=== PATIENT | male | born 1950 | race Caucasian/White ===

== ENCOUNTER 2017-12-14 11:23 | Inpatient (IN) | payer OTHER ==
[2017-12-14 13:28] LABS: Absolute Monocytes 0.9 K/uL (0.1-1.3); Basophils % 0.1 % (0-1.3); Eosinophils % 0.6 % (0-4.4); Hematocrit 28.9 % (39.6-49.0); Lymphocytes % 5.1 % (15.3-44.8); MCV 95.8 fL (80-100); MPV 8.7 fL (7.6-11.3); Monocytes % 4.4 % (3.3-12.3); RBC Red Blood Cell Count 3.01 M/uL (4.33-5.43)
[2017-12-14 13:36] LABS: Protime INR 2.36
[2017-12-14] MEDS ORDERED: ONDANSETRON 4 MG/2 ML VIAL ONE (13:37)
[2017-12-14] MEDS ORDERED: MORPHINE 4 MG/ML SYR ONE (13:37)
[2017-12-14 13:49] LABS: Potassium 3.4 mEq/L (3.6-5.0)
[2017-12-14 13:55] LABS: Albumin 3.3 g/dL (3.2-5.5); Bilirubin Direct 0.3 mg/dL (0-0.2); Bilirubin Total 0.9 mg/dL (0.3-1.2); Magnesium 2.5 mg/dL (1.8-2.5); Protein, Total 7.4 g/dL (6.0-8.3)
[2017-12-14 14:08] LABS: Platelet Estimate ADEQ; Urine White Blood Cell Casts OK
[2017-12-14 14:09] LABS: Anisocytosis 2+; Blood Morphology Comment NOTED (NOT SEEN)
--- NOTE | 2017-12-14 14:18 | RAD REPORT ---
EXAM DESCRIPTION: RAD - Foot Left 3 View - 12/14/2017 1:35 pm CLINICAL HISTORY: Soft tissue infection, foot wound COMPARISON: None. FINDINGS: No fracture is present. There is no dislocation or periosteal reaction. No erosive or dest ructive bone process seen. There is no radiographic evidence for osteomyelitis. Bone infection can be present prior to radiographic bone destruction. Air is present in the soft tissues along the plantar and medial aspect of the first proximal phalanx. In the setting of a soft tissue wound, this is most likely air associated with bacterial infection. IMPRESSION: Air is present in the soft tissues of the first toe believed to be related to bacterial infection. No bone destruction to indicate osteomyelitis. Osteomyelitis can exist prior to radiographic bone spenser truction.
--- NOTE | 2017-12-14 14:19 | RAD REPORT ---
EXAM DESCRIPTION: RAD - Chest Single View - 12/14/2017 1:35 pm CLINICAL HISTORY: Shortness of breath COMPARISON: May 2017 TECHNIQUE: AP portable chest image was obtained 1318 hours . FINDINGS: No focal mass or consolidation. Lung markings are prominent but not clearly different. Car diac silhouette is enlarged, similar to fractionally increased over the prior study. No vascular engo rgement. No measurable pleural effusion and no pneumothorax. No gross bony abnormality seen. No acute aortic findings suspected. IMPRESSION: No focal lung parenchymal process seen. Cardiomegaly without additional findings of acute failure or volume overload.
[2017-12-14] MEDS ORDERED: PIPER/TAZO/NS 3.375gm 3.375 GM/100 ML BAG ONE ×2 (15:09→22:00)
--- NOTE | 2017-12-14 15:15 | RAD REPORT ---
EXAM DESCRIPTION: VAS - Extremity Venous Uni Ltd - 12/14/2017 2:50 pm CLINICAL HISTORY: Left lower leg pain COMPARISON: None. TECHNIQUE: Real-time sonographic evaluation of the right lower extremity deep venous systems was per formed. FINDINGS: Normal compressibility, flow augmentation, phasic flow and spontaneous flow are identified in the right lower extremity deep venous system. No intraluminal filling defects seen. IMPRESSION: No DVT in the right lower extremity.
--- NOTE | 2017-12-14 15:18 | RAD REPORT ---
EXAM DESCRIPTION: VAS - Lower Extremity Artery Uni Ltd - 12/14/2017 2:49 pm CLINICAL HISTORY: Left lower extremity pain COMPARISON: None. TECHNIQUE: Doppler evaluation of the arterial tree performed. Waveforms and velocity values were obt ained along with visual inspection. FINDINGS: Extensive calcified and noncalcified plaquing changes are present along the length of the left lower extremity. No occlusion or focal high-grade stenosis identifiable. Irregular biphasic wave forms are seen in the common femoral and superficial femoral arteries. From popliteal artery to dorsa lis pedis artery there is a monophasic waveform pattern seen. Common femoral artery peak systolic velocity was 113 cm per second.Femoral artery velocity values ran ge from 51 cm/second-136 cm/second. Velocities were dampened distally. Popliteal artery was 29 cm/sec ond with posterior tibial 39 cm/second and dorsalis pedis artery 14 cm/second. No suspicious soft tis ute mass identified. IMPRESSION: Extensive lower extremity peripheral arterial disease is present. There is plaquing thro ughout the leg. No focal high-grade stenosis or occlusion. The abnormal waveform patterns proximally indicate significant iliac artery disease as well.
[2017-12-14] MEDS ORDERED: ACETAMINOPHEN 500 MG TAB PO PRN (15:29)
--- NOTE | 2017-12-14 15:43 | P.HP ---
Certification for Inpatient Patient admitted to: Inpatient With expected LOS: >2 Midnights Patient will require the following post-hospital care: None Practitioner: I am a practitioner with admitting privileges, knowledge of patient current condition, hospital course, and medical plan of care. Services: Services provided to patient in accordance with Admission requirements found in Title 42 Section 412.3 of the Code of Federal Regulations Patient History Date of Service: 12/14/17 Primary Care Provider: Dr Peters Reason for admission: Left Great Toe infection History of Present Illness: This is a 67-year-old male with significant past medical history of congestive heart failure, atrial fibrillation, diabetes, high blood pressure who presented to the ED with left great toe swelling and pain. Patient stated that for about 3 weeks he has been having this infection in his left great toe which has not been improving and has been progressively getting worse to the point today when he started having a throbbing pain and was just not feeling better. Patient stated that he also had fever and chills at home. Has been taking Tylenol to help with it and has not gotten better at all thus he decided to come to the ER. In the ER patient was found to have increased swelling and redness and necrotic tissue of the left great toe and x-ray of the extremity showed fair in the subcutaneous area and does medicine team was consulted to admit the patient for further management. Allergies No Known Drug Allergies Allergy (Verified 02/14/15 23:15) Unknown Home Medications: Atorvastatin Calcium [Lipitor*] 10 mg PO DAILY 04/01/16 Furosemide [Lasix*] 40 mg PO BID 04/01/16 Metformin ER [Glucophage ER*] 500 mg PO BID 04/01/16 Ramipril [Altace] 10 mg PO DAILY 04/01/16 Rivaroxaban [Xarelto*] 20 mg PO DAILY AT SUPPER 04/01/16 Amiodarone HCl [Cordarone*] 200 mg PO BID #180 tab 06/18/16 - Past Medical/Surgical History Diabetic: Yes -: atrial fibrillation -: OK -: CHF -: HTN -: hyperlipidemia -: DM- 2 -: tobaccoo abuse -: cardiac stent -: defibrilator -: bilateral Knee x2 -: arm surgery - Family History Mother -: Hypertension, Cancer Father -: Heart disease, Hypertension - Social History Alcohol use: Yes CD- Drugs: No Caffeine use: No Review of Systems General: As per HPI Physical Examination - Physical Exam General: Alert, In no apparent distress, Oriented x3 HEENT: Atraumatic Neck: Supple Respiratory: Clear to auscultation bilaterally, Normal air movement Cardiovascular: Regular rate/rhythm, Normal S1 S2 Gastrointestinal: Normal bowel sounds, No tenderness Musculoskeletal: Erythema, Tenderness, Warmth, Other (Left Toe necrotic with Purulent Disharge ) Integumentary: Skin breakdown, Skin lesion Neurological: Normal speech, Normal tone Lymphatics: No axilla or inguinal lymphadenopathy - Studies Laboratory Data (last 24 hrs) 12/14/17 13:10: B-Natriuretic Peptide 1788 H 12/14/17 13:10: PT 28.1 H, INR 2.36, APTT 33.2 12/14/17 13:10: WBC 20.0 H, Hgb 9.3 L, Hct 28.9 L, Plt Count 302 12/14/17 13:10: Sodium 134 L, Potassium 3.4 L, BUN 52 H, Creatinine 2.18 H, Glucose 126 H, Magnesium 2.5, Total Bilirubin 0.9, AST 20, ALT 13, Alkaline Phosphatase 85 Assessment and Plan - Problems (Diagnosis) (1) Foot infection Current Visit: Yes Status: Acute Plan: Left Great Toe infection. Xray with Air in the subcutaneous region -IV Vanc and zosyn -Wound and blood culture -Gen surgery Consulted -ID consulted -Wound care (2) Afib Onset Date: 01/31/16 Current Visit: No Status: Chronic Plan: Will restart Amiodorone and Xarelto Qualifiers: Atrial fibrillation type: chronic (3) CHF (congestive heart failure) Onset Date: 04/02/16 Current Visit: No Status: Chronic Plan: Will restart Lasix at this time. Qualifiers: Heart failure type: combined systolic and diastolic (4) Diabetes Onset Date: 01/31/16 Current Visit: No Status: Chronic Qualifiers: Diabetes mellitus type: type 2 Diabetes mellitus intermediate accountant insulin use: without half-way use Diabetes mellitus complication status: with skin complications Diabetes mellitus complication detail: with foot ulcer Qualified Code(s): E11.621 - Type 2 diabetes mellitus with foot ulcer; L97.509 - Non-pressure chronic ulcer of other part of unspecified foot with unspecified severity; L97.509 - Non-pressure chronic ulcer of other part of unspecified foot with unspecified severity; L97.509 - Non-pressure chronic ulcer of other part of unspecified foot with unspecified severity; L97.509 - Non-pressure chronic ulcer of other part of unspecified foot with unspecified severity (5) Sepsis affecting skin Current Visit: Yes Status: Acute Plan: See # 1 Discharge Plan: Home Plan to discharge in: 72 Hours - Advance Directives Does patient have a Living Will: No Does patient have a Durable POA for Healthcare: No - Code Status/Comfort Care Code Status Assessed: Yes Critical Care: No
--- NOTE | 2017-12-14 15:56 | EKG ---
Test Date: 2017-12-14 Test Time: 13:43:05 Clinical Nutritionist: CEDRIC MEASUREMENT RESULTS: Intervals: Rate: 102 ID: QRSD: [id number] QT: 376 QTc: 490 [place]: P: ID: QRS: [id number] T: 143 INTERPRETIVE STATEMENTS: Atrial fibrillation with rapid ventricular response with premature ventricular or aberrantly conducted complexes Left axis deviation Left bundle branch block Abnormal ECG Compared to ECG 06/15/2016 15:18:35 Ventricular premature complex(es) now present Electronically Signed On 12-14-17 15:55:40 CDT by Canelo Dong
--- NOTE | 2017-12-14 15:58 | EDPHYS ---
Physician Documentation [facility] Name: Sha Tan Age: 67 yrs Sex: Male : 1950 Arrival Date: 12/14/2017 Time: 11:24 Bed 23 Private MD: Rell Peters ED Physician Delfino Addison HPI: 12/14 12:48 This 67 yrs old Male presents to ER via Ambulatory with complaints of Foot cp Pain. 12:48 The patient presents with pain, that is acute, swelling, tenderness. The complaints cp affect the left foot. Onset: The symptoms/episode began/occurred 2 week(s) ago. 12:48 Associated signs and symptoms: Pertinent positives: warmth, Pertinent negatives fever, cp vomiting. Treatment prior to arrival includes: no previous treatment. Historical: - Allergies: 11:44 NKDA; ph - Home Meds: 11:44 metformin 500 mg Oral tr24 [Active]; ph - PMHx: 11:44 Atrial Fib; CHF; Hypertension; Myocardial infarction; ph - Immunization history:: Adult Immunizations unknown. - Social history:: Smoking status: Patient uses tobacco products, smokes one-half pack cigarettes per day. ROS: 12:50 Constitutional: Negative for body aches, chills, fever, poor PO intake. cp 12:50 Eyes: Negative for injury, pain, redness, and discharge. cp 12:50 ENT: Negative for drainage from ear(s), ear pain, sore throat, difficulty swallowing, difficulty handling secretions. 12:50 Neck: Negative for pain with movement, pain at rest, stiffness, tenderness. 12:50 Cardiovascular: Negative for chest pain, edema, palpitations. 12:50 Respiratory: Negative for cough, shortness of breath, wheezing. 12:50 Abdomen/GI: Negative for abdominal pain, nausea, vomiting, and diarrhea, black/tarry stool, rectal bleeding. 12:50 Back: Negative for pain at rest, pain with movement, radiated pain. 12:50 MS/extremity: Positive for erythema, pain, swelling, tenderness, warmth, of the left foot. 12:50 Skin: Positive for cellulitis, ulceration, open wounds left great and second toes. 12:50 All other systems are negative. Exam: 13:03 Constitutional: The patient appears in no acute distress, alert, awake, cp non-diaphoretic, non-toxic, well developed, uncomfortable. 13:03 Head/Face: Normocephalic, atraumatic. cp 13:03 Eyes: Periorbital structures: appear normal, Pupils: equal, round, and reactive to cp light and accomodation, Extraocular movements: intact throughout, Conjunctiva: normal, no exudate, no injection, Lids and lashes: appear normal, bilaterally. 13:03 ENT: External ear(s): are unremarkable, Ear canal(s): are normal, clear, TM's: cp dullness, bilaterally, Nose: is normal, Mouth: Lips: moist, Oral mucosa: moist, Posterior pharynx: is normal, airway is patent, no erythema, no exudate, Voice: is normal. 13:03 Neck: External neck: is normal, ROM/movement: is normal, is supple, without pain, no range of motions limitations, no meningismus, no nuchal rigidity. 13:03 Chest/axilla: Inspection: normal, Palpation: is normal, no crepitus, no tenderness. 13:03 Cardiovascular: Rate: normal, Rhythm: regular, Pulses: not palpable, left dorsalis pedis, Edema: mild left lower leg. 13:03 Respiratory: the patient does not display signs of respiratory distress, Respirations: normal, no use of accessory muscles, no retractions, no splinting, no tachypnea, labored breathing, is not present, Breath sounds: are clear throughout, no decreased breath sounds, no stridor, no wheezing. 13:03 Abdomen/GI: Inspection: abdomen appears normal, Bowel sounds: active, all quadrants, Palpation: abdomen is soft and non-tender, in all quadrants. 13:03 Back: pain, is absent, ROM is normal. 13:03 Skin: cellulitis, that is moderate, on the left foot, noted large open wound distal aspect left great toe and smaller wound distal tip left second toe. 13:50 ECG was reviewed by the Attending Physician. cp Vital Signs: 11:44 BP 148 / 118; Pulse 97; Resp 22; Temp 97.5(TE); Pulse Ox 100% on R/A; Weight 111.13 kg; ph Height 6 ft. 1 in. (185.42 cm); Pain 7/10; 13:53 BP 113 / 47; Pulse 104; Resp 19; Pulse Ox 98% on R/A; kr2 15:36 BP 91 / 60; Pulse 100; Resp 16; Pulse Ox 97% on R/A; kr2 16:50 BP 107 / 54; Pulse 94; Resp 18; Pulse Ox 97% on R/A; kr2 11:44 Body Mass Index 32.32 (111.13 kg, 185.42 cm) ph 15:36 VIVEK Mayberry notified of blood pressure dropping, patient placed in trendelenburg kr2 position MDM: 12:29 Patient medically screened. cp 13:00 Differential diagnosis: osteomyelitis, cellulitis, sepsis. cp 14:58 Physician consultation: Noreen Lomeli MD was called at 14:58, was contacted at 14:58, cp regarding admission, to the medical/surgical unit. patient's condition. 15:30 Data reviewed: vital signs, nurses notes, lab test result(s), EKG, radiologic studies, cp plain films, ultrasound. 15:30 Test interpretation: by ED physician or midlevel provider: plain radiologic studies. cp Counseling: I had a detailed discussion with the patient and/or guardian regarding: the historical points, exam findings, and any diagnostic results supporting the discharge/admit diagnosis, lab results, radiology results, the need for further work-up and treatment in the hospital. 12/14 11:52 Order name: Glucose, Ancillary Testing; Complete Time: 12:30 EDMS 12/14 12:55 Order name: Wound Culture cp 12/14 12:55 Order name: Blood Culture Adult (2) cp 12/14 12:55 Order name: Basic Metabolic Panel cp 12/14 12:55 Order name: CBC with Diff cp 12/14 12:55 Order name: LFT's cp 12/14 12:55 Order name: Magnesium cp 12/14 12:55 Order name: PT-INR cp 12/14 12:55 Order name: Ptt, Activated cp 12/14 12:55 Order name: BNP cp 12/14 13:38 Order name: CBC with Automated Diff; Complete Time: 14:29 EDMS 12/14 14:32 Interpretation: Normal except: WBC 20.0; RBC 3.01; HGB 9.3; HCT 28.9; RDW 18.0; RYLEE% cp 89.8; LYM% 5.1; NEUT A 18.0. 12/14 13:39 Order name: Protime (+INR); Complete Time: 14:29 EDMS 12/14 14:33 Interpretation: Abnormal: PT 28.1. cp 12/14 13:39 Order name: PTT, Activated Partial Thromb; Complete Time: 14:29 EDMS 12/14 13:49 Order name: Basic Metabolic Panel; Complete Time: 14:29 EDMS 12/14 14:57 Interpretation: Normal except: NA 134; K 3.4; CL 91; GLUC 126; BUN 52; CRE 2.18; GFR 30. 12/14 12:55 Order name: XRAY Foot LEFT 3 View cp 12/14 12:55 Order name: US Lower Extremity (Artery Uni Ltd) cp 12/14 12:55 Order name: CXR XRAY 12/14 12:55 Order name: US Extremity Venous Uni Ltd cp 12/14 13:55 Order name: Liver (Hepatic) Function; Complete Time: 14:29 EDMS 12/14 13:55 Order name: Magnesium; Complete Time: 14:29 EDMS 12/14 13:58 Order name: BNP B-Type Natriuretic Peptide; Complete Time: 14:29 EDMS 12/14 14:57 Interpretation: Abnormal: BNP 1788. 12/14 14:10 Order name: Manual Differential; Complete Time: 14:29 EDMS 12/14 14:19 Order name: RAD; Complete Time: 14:29 EDMS 12/14 14:20 Order name: RAD; Complete Time: 14:29 EDMS 12/14 15:16 Order name: V[facility] 12/14 15:26 Interpretation: Report reviewed. 12/14 15:18 Order name: VAS; Complete Time: 15:26 EDMS 12/14 15:27 Interpretation: Report reviewed. 12/14 16:53 Order name: Lactate EDMT 12/14 16:58 Order name: C-Reactive Protein EDMT 12/14 12:55 Order name: EKG; Complete Time: 12:55 cp 12/14 12:55 Order name: Cardiac monitoring; Complete Time: 13:16 12/14 12:55 Order name: EKG - Nurse/Tech; Complete Time: 14:00 12/14 12:55 Order name: IV Saline Lock; Complete Time: 13:16 12/14 12:55 Order name: Labs collected and sent; Complete Time: 13:16 12/14 12:55 Order name: O2 Per Protocol; Complete Time: 13:16 cp 12/14 12:55 Order name: O2 Sat Monitoring; Complete Time: 13:17 cp EC:50 Rate is 102 beats/min. Rhythm is irregularly irregular. QRS interval is prolonged at cp 162 msec. QT interval is normal. No ST changes noted. Interpreted by me. Reviewed by me. Administered Medications: 13:35 Drug: morphine 4 mg Route: IVP; Site: left antecubital; kr2 14:00 Follow up: Response: No adverse reaction; Pain is decreased kr2 13:35 Drug: Zofran 4 mg Route: IVP; Site: left antecubital; kr2 14:01 Follow up: Response: No adverse reaction kr2 14:57 Drug: Zosyn 3.375 grams Route: IVPB; Infused Over: 60 mins; Site: left antecubital; kr2 15:53 Follow up: Response: No adverse reaction; IV Status: Completed infusion kr2 15:53 Drug: vancoMYCIN 1 grams Route: IVPB; Infused Over: 2 hrs; Site: left antecubital; kr2 17:05 Follow up: Response: No adverse reaction; IV Status: Infusion continued upon admission kr2 15:59 Drug: NS 0.9% 250 ml Route: IV; Rate: bolus; Site: left antecubital; kr2 16:34 Follow up: IV Status: Completed infusion ss Point of Care Testing: Blood Glucose: 11:45 Blood Glucose: 184 mg/dL; ph Ranges: Critical Glucose Levels:Adult <50 mg/dl or >400 mg/dl <40 mg/dl or >180 mg/dl Disposition: 12/14/17 15:57 Hospitalization ordered by Noreen Lomeli for Inpatient Admission. Preliminary diagnosis are Cellulitis of left lower limb - Left Foot, Open wound of foot - Left Great and Second Toes. - Bed requested for Telemetry/MedSurg (Inpatient). - Status is Inpatient Admission. kr2 - Condition is Stable. - Problem is new. - Symptoms are unchanged. UTI on Admission? No Addendum: 12/18/2017 07:21 Co-signature as Attending Physician, Delfino Addison MD. g s Signatures: Dispatcher [employer] Cheyenne Maxwell Patricia, RN RN Taiwo Jimenez PA PA cp Starr, Gregory, MD MD gs Reaves, Karey, RN RN kr2 Josefa Sweeney RN ss
--- NOTE | 2017-12-14 15:58 | ER ---
Nurse's Notes [facility] Name: Sha Tan Age: 67 yrs Sex: Male : 1950 Arrival Date: 12/14/2017 Time: 11:24 Bed 23 Private MD: Rell Peters Diagnosis: Cellulitis of left lower limb-Left Foot;Open wound of foot-Left Great and Second Toes Presentation: 12/14 11:39 Presenting complaint: Patient states: My circulation in my foot is bad and my toenails ph started falling off a few days ago. Reports pain in L foot, large wound w/ black eschar noted to L great toe, smaller wound to second toe. Denies N/V/D or fever, reports slight headache. Transition of care: patient was not received from another setting of care. Onset of symptoms was December 14, 2017. Care prior to arrival: None. 11:39 Method Of Arrival: Ambulatory ph 11:39 Acuity: MARCELL 3 ph Historical: - Allergies: 11:44 NKDA; ph - Home Meds: 11:44 metformin 500 mg Oral tr24 [Active]; ph - PMHx: 11:44 Atrial Fib; CHF; Hypertension; Myocardial infarction; ph - Immunization history:: Adult Immunizations unknown. - Social history:: Smoking status: Patient uses tobacco products, smokes one-half pack cigarettes per day. Screenin:51 Abuse screen: Denies threats or abuse. Denies injuries from another. Nutritional kr2 screening: No deficits noted. Tuberculosis screening: No symptoms or risk factors identified. Fall Risk None identified. Assessment: 13:10 General: Appears in no apparent distress. comfortable, well groomed, well nourished, kr2 Behavior is calm, cooperative, appropriate for age. Pain: Complains of pain in plantar aspect of left first toe, plantar aspect of left second toe and plantar aspect of left third toe Pain radiates to left foot Pain currently is 8 out of 10 on a pain scale. Quality of pain is described as aching, throbbing, Is continuous, Alleviated by medications, rest, Aggravated by increased activity, weight bearing. 13:10 Neuro: Level of Consciousness is awake, alert, obeys commands, Oriented to person, kr2 place, time, situation, Appropriate for age. Cardiovascular: Capillary refill < 3 seconds in bilateral fingers Patient's skin is warm and dry. Respiratory: Airway is patent Respiratory effort is even, unlabored, Respiratory pattern is regular, symmetrical. GI: Abdomen is flat, non-distended. : No signs and/or symptoms were reported regarding the genitourinary system. EENT: Oral mucosa is dry. Derm: Wound noted plantar aspect of left first toe and plantar aspect of left second toe, plantar aspect of right great toe Wound is not draining, eschar noted to right toe, odor present. Musculoskeletal: Circulation, motion, and sensation intact. 15:36 Reassessment: Patient appears in no apparent distress at this time. Patient and/or kr2 family updated on plan of care and expected duration. Pain level reassessed. Patient is alert, oriented x 3, equal unlabored respirations, skin warm/dry/pink. 16:14 Reassessment: Patient appears in no apparent distress at this time. Patient and/or kr2 family updated on plan of care and expected duration. Pain level reassessed. Patient is alert, oriented x 3, equal unlabored respirations, skin warm/dry/pink. Vital Signs: 11:44 BP 148 / 118; Pulse 97; Resp 22; Temp 97.5(TE); Pulse Ox 100% on R/A; Weight 111.13 kg; ph Height 6 ft. 1 in. (185.42 cm); Pain 7/10; 13:53 BP 113 / 47; Pulse 104; Resp 19; Pulse Ox 98% on R/A; kr2 15:36 BP 91 / 60; Pulse 100; Resp 16; Pulse Ox 97% on R/A; kr2 16:50 BP 107 / 54; Pulse 94; Resp 18; Pulse Ox 97% on R/A; kr2 11:44 Body Mass Index 32.32 (111.13 kg, 185.42 cm) ph 15:36 VIVEK Mayberry notified of blood pressure dropping, patient placed in trendelenburg kr2 position ED Course: 11:24 Patient arrived in ED. as 11:24 Rell Peters DO is Private Physician. as 11:42 Triage completed. ph 11:45 Arm band placed on Patient placed in waiting room, Patient notified of wait time. ph 12:29 [facility]wo Esparza [facility]. cp 12:29 Delfino Addison MD is Attending Physician. cp 13:02 Onelia Sylvester, RN is Primary Nurse. kr2 13:10 Inserted saline lock: 22 gauge in right antecubital area, using aseptic technique. kr2 Blood collected. 13:10 Initial lab(s) drawn, First set of blood cultures drawn by me, Wound culture swab sent kr2 to lab. 13:30 IV discontinued, intact, bleeding controlled, Pressure dressing applied, would not kr2 flush for medication administration. 13:33 X-ray completed. Portable x-ray completed in exam room. Patient tolerated procedure kp1 well. 13:35 Inserted saline lock: 20 gauge in left antecubital area, using aseptic technique. Blood kr2 collected. 13:35 Second set of blood cultures drawn by me, EKG done, reviewed by Taiwo DOYLE. kr2 13:50 Ultrasound completed. Patient tolerated well. Notified [employer]IC/VIVEK chanel . sg3 13:51 Patient has correct armband on for positive identification. Call light in reach. Side kr2 rails up X2. surveillance system monitor on. Pulse ox on. NIBP on. Door closed. Lights dimmed. Head of bed elevated. 15:57 Noreen Lomeli MD is Hospitalizing Provider. cp 16:33 Inserted saline lock: 22 gauge in right antecubital area, using aseptic technique. ss Blood collected. 17:05 No provider procedures requiring assistance completed. Patient admitted, IV remains in kr2 place. Administered Medications: 13:35 Drug: morphine 4 mg Route: IVP; Site: left antecubital; kr2 14:00 Follow up: Response: No adverse reaction; Pain is decreased kr2 13:35 Drug: Zofran 4 mg Route: IVP; Site: left antecubital; kr2 14:01 Follow up: Response: No adverse reaction kr2 14:57 Drug: Zosyn 3.375 grams Route: IVPB; Infused Over: 60 mins; Site: left antecubital; kr2 15:53 Follow up: Response: No adverse reaction; IV Status: Completed infusion kr2 15:53 Drug: vancoMYCIN 1 grams Route: IVPB; Infused Over: 2 hrs; Site: left antecubital; kr2 17:05 Follow up: Response: No adverse reaction; IV Status: Infusion continued upon admission kr2 15:59 Drug: NS 0.9% 250 ml Route: IV; Rate: bolus; Site: left antecubital; kr2 16:34 Follow up: IV Status: Completed infusion Point of Care Testing: Blood Glucose: 11:45 Blood Glucose: 184 mg/dL; ph Ranges: Outcome: 15:57 Decision to Hospitalize by Provider. cp 17:06 Admitted to Tele accompanied by rohan, via stretcher, room 225, with chart, Report kr2 called to Юлия 17:06 Condition: stable 17:06 Instructed on the need for admit, Demonstrated understanding of instructions. 17:07 Patient left the ED. kr2 Signatures: Jacy Ramos Shelby, PHILLIP RN ss Stephanie Platt RN RN ph Taiwo Esparza, VIVEK PA Brook Koenig kp1 Onelia Sylvester RN RN kr2 Leyla Rucker sg3 Corrections: (The following items were deleted from the chart) 14:29 13:10 Derm: Wound noted plantar aspect of left first toe and plantar aspect of left kr2 second toe Wound is eschar and odor noted kr2 16:14 15:36 BP 91 / 60; Pulse 100bpm; Resp 16bpm; Pulse Ox 97% RA; kr2 kr2
[2017-12-14] MEDS ORDERED: VANCOMYCIN 1.25 GM in NA CHLORIDE 0.9% 250 ML IVPB SCH (16:00)
[2017-12-14] MEDS ORDERED: VANCOMYCIN/NS 1 gm 1 GM/250 ML BAG ONE (16:03)
[2017-12-14] MEDS ORDERED: NA CHLORIDE 0.9% 250 ML ONE (16:14)
[2017-12-14] MEDS: INSULIN -REGULAR HUMAN 50 UNIT/0.5 ML ML SQ SCH ×2 (16:30→21:07)
[2017-12-14] MEDS ORDERED: VANCOMYCIN/NS 1 gm 1 GM/250 ML BAG IV ONE ×2 (17:00→22:00)
[2017-12-14 18:40] VITALS: BMI 31.2
[2017-12-14] MEDS: PIPER/TAZO/NS 3.375gm 3.375 GM/100 ML BAG IVPB SCH (21:00)
[2017-12-14] MEDS: TRAMADOL HCL 50 MG TAB PO PRN (21:57)
[2017-12-15] LABS: Urine Appearance CLEAR; Urine Bilirubin NEGATIVE (NEG); Urine Blood NEGATIVE (NEG); Urine Color YELLOW; Urine Glucose NEGATIVE (NEG); Urine Protein NEGATIVE (NEG); Urine Specific Gravity 1.015 (1.005-1.030); Urine Urobilinogen 0.2 mg/dL (0.2-1.0); Urine pH 5.5 (5.0-7.0)
[2017-12-15 00:11] LABS: Urine Microscopic Reflex NO UMIC
[2017-12-15 06:06] LABS: Absolute Lymphocytes (CBC) 1.2 K/uL (0.7-4.9); Absolute Monocytes 0.8 K/uL (0.1-1.3); Absolute Neutrophil 15.6 K/uL (1.8-8.0); Basophils % 0.5 % (0-1.3); Eosinophils % 1.3 % (0-4.4); Lymphocytes % 6.5 % (15.3-44.8); MCV 96.7 fL (80-100); MPV 8.7 fL (7.6-11.3); Monocytes % 4.4 % (3.3-12.3); RBC Red Blood Cell Count 2.59 M/uL (4.33-5.43)
[2017-12-15 06:26] LABS: Protime INR 3.32
[2017-12-15 06:50] LABS: Albumin 2.4 g/dL (3.2-5.5); Bilirubin Total 0.8 mg/dL (0.3-1.2); Magnesium 2.5 mg/dL (1.8-2.5); Phosphorus 4.1 mg/dL (2.5-4.3); Potassium 3.4 mEq/L (3.6-5.0); Protein, Total 5.7 g/dL (6.0-8.3)
[2017-12-15] MEDS: INSULIN -REGULAR HUMAN 50 UNIT/0.5 ML ML SQ SCH ×4 (07:30→20:49)
[2017-12-15] MEDS ORDERED: POTASSIUM CL SA 10 MEQ TAB PO ONE (09:00)
[2017-12-15] MEDS: CARVEDILOL 3.125 MG TAB PO SCH ×2 (09:00→20:46)
[2017-12-15] MEDS: PIPER/TAZO/NS 3.375gm 3.375 GM/100 ML BAG IVPB SCH ×2 (09:22→20:46)
[2017-12-15] MEDS ORDERED: NA CHLORIDE 0.9% 500 ML IV ONE (09:52)
[2017-12-15] MEDS: TRAMADOL HCL 50 MG TAB PO PRN (12:38)
--- NOTE | 2017-12-15 13:36 | P.CNS ---
Date of Consult: 12/15/17 Reason for Consult: JOHN Requesting Physician: Aly Mckinnon Primary Care Provider: Dr Peters Chief Complaint: Left Great Toe infection History of Present Illness: 67 yo WM DM, HTN presented to the ER with three weeks of moderate, progressive Left great toe pain/ ulcer with associated fever/ chills. Has been taking Aleve three times per day for the past five days. No difficulty with urination. Reports that his BP doesn't run this low. This is a 67-year-old male with significant past medical history of congestive heart failure, atrial fibrillation, diabetes, high blood pressure who presented to the ED with left great toe swelling and pain. Patient stated that for about 3 weeks he has been having this infection in his left great toe which has not been improving and has been progressively getting worse to the point today when he started having a throbbing pain and was just not feeling better. Patient stated that he also had fever and chills at home. Has been taking Tylenol to help with it and has not gotten better at all thus he decided to come to the ER. In the ER patient was found to have increased swelling and redness and necrotic tissue of the left great toe and x-ray of the extremity showed fair in the subcutaneous area and does medicine team was consulted to admit the patient for further management. 12:48 This 67 yrs old Male presents to ER via Ambulatory with complaints of Foot cp Pain. 12:48 The patient presents with pain, that is acute, swelling, tenderness. The complaints cp affect the left foot. Onset: The symptoms/episode began/occurred 2 week(s ) ago. Allergies No Known Drug Allergies Allergy (Verified 02/14/15 23:15) Unknown Home medications list reviewed: Yes Home Medications: Atorvastatin Calcium [Lipitor*] 10 mg PO DAILY 04/01/16 Furosemide [Lasix*] 80 mg PO DAILY 04/01/16 Metformin ER [Glucophage ER*] 500 mg PO BID 04/01/16 Ramipril [Altace] 10 mg PO DAILY 04/01/16 Rivaroxaban [Xarelto*] 20 mg PO DAILY AT SUPPER 04/01/16 Carvedilol [Coreg] 3.125 mg PO BID 12/14/17 - Past Medical/Surgical History Diabetic: Yes -: atrial fibrillation -: MT -: CHF -: HTN -: hyperlipidemia -: DM- 2 -: tobaccoo abuse -: cardiac stent -: defibrilator -: bilateral Knee x2 -: arm surgery - Family History Mother Medical History: Hypertension, Cancer Father Medical History: Heart disease, Hypertension - Social History Smoking Status: Current every day smoker Alcohol use: No CD- Drugs: No Caffeine use: Yes Place of Residence: Home Review of Systems 10-point ROS is otherwise unremarkable General: Weakness, Malaise Cardiovascular: Edema Integumentary: Lesions Neurological: Weakness Physical Examination Temp Pulse Resp BP Pulse Ox 95.8 F L 104 H 16 81/50 L 99 12/15/17 08:00 12/15/17 08:00 12/15/17 08:00 12/15/17 08:00 12/15/17 08:00 General: Oriented x3, Cooperative HEENT: Atraumatic Neck: Supple Respiratory: Clear to auscultation bilaterally, Normal air movement Cardiovascular: Regular rate/rhythm, No rubs, Edema Gastrointestinal: Soft and benign, Non-distended Musculoskeletal: No clubbing, No contractures Integumentary: No rashes, Skin breakdown, Diabetic ulcer Neurological: Normal speech Laboratory Data (last 24 hrs) 12/14/17 13:10: B-Natriuretic Peptide 1788 H 12/14/17 13:10: PT 28.1 H, INR 2.36, APTT 33.2 12/14/17 13:10: WBC 20.0 H, Hgb 9.3 L, Hct 28.9 L, Plt Count 302 12/14/17 13:10: Sodium 134 L, Potassium 3.4 L, BUN 52 H, Creatinine 2.18 H, Glucose 126 H, Magnesium 2.5, Total Bilirubin 0.9, AST 20, ALT 13, Alkaline Phosphatase 85 Imagings Data: EXAM DESCRIPTION: RAD - Chest Single View - 12/14/2017 1:35 pm CLINICAL HISTORY: Shortness of breath COMPARISON: May 2017 TECHNIQUE: AP portable chest image was obtained 1318 hours . FINDINGS: No focal mass or consolidation. Lung markings are prominent but not clearly different. Cardiac silhouette is enlarged, similar to fractionally increased over the prior study. No vascular engorgement. No measurable pleural effusion and no pneumothorax. No gross bony abnormality seen. No acute aortic findings suspected. IMPRESSION: No focal lung parenchymal process seen. Cardiomegaly without additional findings of acute failure or volume overload. Conclusions/Impression: A/ JOHN likely ATN in the setting of NSAIDs. CKD III. HTN with CKD. DM II with CKD. Diastolic CHF, chronic. Anemia in chronic illness. Hyponatemia. Hypokalemia. Hypocalcemia. Moderate malnutrition. PAD with LE ulcers. P/ Continue current POC and Medications. Start gentle IVF. Agree with potassium replacement. Agree with abx/ Recommend renal dosing. Monitor vancomycin levels. Check anemia labs. Start Vitamin D. Encourage nutrition. No NSAIDs. AM labs. Daily weight. Thank you kindly for the consultation.
--- NOTE | 2017-12-15 13:55 | CON ---
Date of Consultation: 12/15/2017 Reason For Consultation: Left lower extremity infection. History Of Present Illness: The patient is a 67-year-old gentleman with multiple medical problems, w ho states that about 3 weeks ago he had an infection in his left great toe. It was progressively get ting worse. He had increasing pain, did not feel well, and came to the emergency room. He had fever and chills at home. No purulent discharge, and he states that after being admitted overnight, he fe els better. He is anticoagulated for AFib and cardiac stents. Review of Systems: No sore throat. No fever or chills. Currently, no chest pain. Review of systems is otherwise unrem arkable. Past Medical History: Diabetes, atrial fibrillation, ID, CHF, hypertension, and hyperlipidemia. Past Surgical History: Defibrillator, cardiac stents, bilateral knee surgery, and arm surgery. Allergies: NONE. Social History: The patient does smoke and drinks occasionally. Family History: Significant for hypertension, heart disease, unknown type of cancer in the mother. Physical Examination: Vital Signs: Stable. Blood pressure is between 80 and 100 systolic, but is unchanged. Heart rate is between 88 and 104. General: He is awake, alert, orient x3. Head and Neck: Cranial nerves 2 through 12 grossly within normal limits. No neck masses. No JVD. Throat clear. Neck is supple. Chest: Clear. Heart: S1, S2. Abdomen: Soft. Extremities: I am unable to palpate the dorsalis pedis and posterior tibial pulses on the left foot. There is approximately a 2 cm area of dry gangrene on the medial aspect of the left great toe. The re is some erythema and edema. There is no fluctuance. There is mild induration. There is no purul ent discharge. There is approximately 1 cm area of dry gangrene present on the second toe on the sorin ntar medial aspect. Laboratory Data: White count on admission was 20,000 and 17.9 right now, H and H are 8 and 25. Ther e is a left shift. His INR is 3.32, PT is 39.7. BUN is 62, creatinine is 2.73. His lactic acid is 10.1. He had a foot x-ray, which shows air present in the soft tissue in the first toe, believed to be related to bacterial infection. No bony destruction to indicate osteo; however, it can exist on t he plain films, difficult to toe. Venous study of the left lower extremity, which does not show any D VT. He had a Doppler study done, which shows extensive lower extremity peripheral arterial disease i s present, plaquing throughout the leg. No focal high-grade stenosis or occlusion. The abnormal wav eform proximally indicated significant iliac artery disease as well. Assessment: A 67-year-old gentleman with multiple medical problems with left first and second toe dr lorena gangrene and severe peripheral vascular disease. Recommendations: At this time, the patient does not have any clinical indication for an urgent surge ry. He does need further evaluation for an osteomyelitis and because he has a defibrillator in place , may be a bone scan or a CT scan would further help to make the diagnosis. Because of his renal ins ufficiency, it would be difficult to do an angiogram on this patient. He is high risk for any surger y for toe amputation because I do not believe he has a circulation for it to heal. The only surgery that may help him in the BKA or an AKA and that is consideration down the road if conservative treatm ent is failed, and that would have to be based upon transcutaneous oxygen measurement prior to surger y. Plan of care was discussed in detail with Dr. Mckinnon. JAQUAN/GINNA Voice ID: [id number] Report ID: [id number]
[2017-12-15 14:52] LABS: Urine Appearance CLEAR; Urine Bilirubin NEGATIVE (NEG); Urine Blood NEGATIVE (NEG); Urine Color YELLOW; Urine Glucose NEGATIVE (NEG); Urine Protein NEGATIVE (NEG); Urine Urobilinogen 0.2 mg/dL (0.2-1.0)
[2017-12-15 15:28] LABS: Urine Bacteria <20 /HPF (NONE SEEN); Urine Culture Reflex Order NOT NEEDED; Urine RBC <5 /HPF (NONE SEEN)
[2017-12-15] MEDS: RIVAROXABAN 20 MG TABLET PO SCH (16:43)
--- NOTE | 2017-12-15 17:17 | CON ---
Mr. Tan is 67. 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 He also has underlying renal insufficiency, creatinine is 2.73. Per ipheral vascular disease, COPD, ongoing smoking, came to the hospital because sores on his toes are n ot healing. They have been that way for several months but now it is causing more pain and the left great toe is the main one. It is on the aspect of the toe which would look medially or towards the o ther toe. There is an ulcer about 2-1/2 to 3 cm in diameter. It is filled with dry gangrenous mater ial. There was no purulence. He has had an arterial Doppler study indicating that the peripheral ar teries in the legs are probably completely blocked. He is a regular cigarette smoker. Outpatient Medications: Metformin, ramipril, furosemide, atorvastatin, rivaroxaban, carvedilol. Allergies: HE REPORTS NO ALLERGIES. Physical Examination: General: He is 6 feet 1 inch, 237 pounds. Lungs: Reveal no significant abnormality. Heart: Irregularly irregular. There is an S3 gallop. Holosystolic murmur. Abdomen: Soft. Extremities: No edema, cyanosis, clubbing. Distal pulses are nonpalpable. Impression: The patient's left great toe has dry gangrene. There is pain there. I think trying to revascularize him would be a tremendous effort very likely not to be terribly successful, so pain man agement is impossible and toe amputation would probably be the best option. I am afraid if we gave h im contrast, he would be a dialysis patient almost certainly, and I do not think we are ready to push him along that way just because he is going to lose a toe he might feel differently and Dr. Kristin [facility]roz [facility] feel differently, so we should have an open discussion about the pros and cons, but I am very rel uctant to consider doing an angiogram attempt revascularization for a great toe ulcer. Thank you very much for your kind referral of Mr. Tan. I will follow him with you. BRETT/GINNA Voice ID: [id number] Report ID: [id number]
--- NOTE | 2017-12-15 18:52 | PN ---
Date of Progress Note: 12/15/2017 The patient seen and examined. Chart reviewed and case discussed with RN and Dr. Foster. Subjective: The patient states his pain is tolerable. No other complaints. Review of Systems: Negative except as above. Medications: Reviewed. Physical Examination: Vital Signs: Temperature 95.8, heart rate 104, blood pressure 81/50, respirations 16, and O2 99% on 2 L via nasal cannula. General: Awake, alert, oriented x3, in some mild distress. Elderly male, somewhat ill-appearing. CV: S1, S2. Peripheral pulses are absent on left foot. Femoral pulses are present. Respiratory: Clear to auscultation bilaterally. No wheezing. No stridor. No use of accessory musc les. Gastrointestinal: Abdomen is soft, nontender, nondistended. Positive bowel sounds. Extremities: No clubbing, cyanosis. There is some mild pedal edema. Neuro: Decreased sensation bilateral lower extremity. Integumentary: Dry gangrene on right first toe. Ulceration on the first metatarsal plantar aspect o f the right foot. Laboratory Data: Sodium 131, potassium 3.4, chloride 93, CO2 of 27, BUN 62, creatinine 2.73, glucose 106, and calcium 7.9. BNP 1039. INR 3.32. WBC 17.9, H and H are 8 and 25, platelets 260, and neut rophils 87.3%. Blood cultures negative to date. Wound culture shows gram-positive cocci in clusters , 3+ mixed skin zackery. Assessment And Plan: A 67-year-old male with: 1.Left first toe infection. X-ray shows air in the subcutaneous region. We will continue with IV a ntibiotics. Cultures pending at this time. Dr. Foster with Surgery is on the case and does not recom mend surgical intervention at this time due to poor vascular status as well as initial response to IV antibiotics. We will continue to monitor closely. Wound care. Follow up with culture results. 2.Atrial fibrillation, chronic. We will continue amiodarone and Xarelto as no surgical intervention planned. 3.Peripheral vascular disease. Doppler sonogram reviewed shows extensive lower extremity peripheral arterial disease with plaquing throughout the leg. No focal high-grade stenosis or occlusion. We w ill start on Pletal. 4.Chronic congestive heart failure, combined systolic and diastolic. 5.Diabetes mellitus type 2 without long-term use of insulin with skin complications and foot ulcer. We will check hemoglobin A1c. Monitor glucose. 6.Sepsis secondary to diabetic foot ulcer with dry gangrene. Continue broad-spectrum IV antibiotics . Follow up on cultures. White count is improving. The patient is afebrile. 7.Hyponatremia. 8.Hypokalemia. We will replace and monitor. 9.Acute on chronic kidney injury. We will consult Nephrology and monitor creatinine level. The pat ient will likely need broad-spectrum IV antibiotics and wound care, possible LTAC referral. The cristina ent unfortunately cannot have an angiogram of lower extremities due to his kidney function. /GINNA Voice ID: [id number] Report ID: [id number]
[2017-12-15] MEDS ORDERED: Ringers Lactate 1,000 ML IV SCH (20:00)
[2017-12-15] MEDS: ATORVASTATIN 10 MG TAB PO SCH (20:46)
[2017-12-16] MEDS ORDERED: VANCOMYCIN 2 GM in NA CHLORIDE 0.9% 500 ML IVPB SCH (05:00)
[2017-12-16] MEDS: TRAMADOL HCL 50 MG TAB PO PRN (05:25)
[2017-12-16 06:05] LABS: Absolute Lymphocytes (CBC) 1.1 K/uL (0.7-4.9); Absolute Neutrophil 14.6 K/uL (1.8-8.0); Basophils % 0.6 % (0-1.3); Eosinophils % 0.9 % (0-4.4); Hematocrit 25.4 % (39.6-49.0); Lymphocytes % 6.4 % (15.3-44.8); MCH 31.1 pg (27.0-35.0); MCV 96.6 fL (80-100); MPV 8.5 fL (7.6-11.3); Monocytes % 6.1 % (3.3-12.3); RBC Red Blood Cell Count 2.63 M/uL (4.33-5.43)
[2017-12-16 06:39] LABS: BUN Blood Urea Nitrogen 70 mg/dL (6-20); Bicarbonate 28 mEq/L (21-31); Glomerular Filtration Rate 27 mL/min (=/>90); Glucose Level 124 mg/dL (65-120); Sodium Level 129 mEq/L (135-145); Transferrin 239 mg/dL (180-329)
[2017-12-16 06:48] LABS: Folic Acid, (Folate) > 22.3 ng/ml (>5.21)
[2017-12-16] MEDS: INSULIN -REGULAR HUMAN 50 UNIT/0.5 ML ML SQ SCH ×4 (07:30→20:37)
[2017-12-16 07:41] LABS: Anisocytosis 1+; Blood Morphology Comment NOTED (NOT SEEN); Hypochromasia 1+; Platelet Estimate ADEQ; Toxic Granulation 1+
[2017-12-16] MEDS: PIPER/TAZO/NS 3.375gm 3.375 GM/100 ML BAG IVPB SCH ×2 (09:15→20:49)
[2017-12-16] MEDS: CLOPIDOGREL 75 MG TABLET PO SCH (09:15)
[2017-12-16] MEDS: VITAMIN D 5,000 UNIT CAP PO SCH (09:15)
[2017-12-16] MEDS: CARVEDILOL 3.125 MG TAB PO SCH ×2 (09:15→20:43)
[2017-12-16] MEDS: NA CHLORIDE 0.9% 1,000 ML IV SCH ×2 (09:15→21:33)
[2017-12-16] MEDS: CALCITROL 0.25 MCG CAP PO SCH (09:15)
[2017-12-16] MEDS: VANCOMYCIN 2 GM in NA CHLORIDE 0.9% 500 ML IVPB SCH (09:16)
--- NOTE | 2017-12-16 10:57 | RAD REPORT ---
EXAM DESCRIPTION: NM - Bone Imaging Three Phase - 12/16/2017 10:47 am CLINICAL HISTORY: Soft tissue infection, suspected osteomyelitis left first toe COMPARISON: None. TECHNIQUE: The patient was administered 25.7 mCi Tc 99m MDP. Dynamic flow imaging was performed at the area of interest. Immediate blood pool and 3-4 hour delayed images were obtained. FINDINGS: Dynamic flow imaging shows an increase in activity in the first metatarsal head region. Th is increased activity persists on both blood pool and delayed imaging. The patient has overall patchy increased activity at both ankle joints and in the left midfoot. On both the blood pool and delayed imaging there is absent or markedly diminished activity in the left first toe. The diminished activity would indicate an avascular or very poorly perfused first toe. Osteomyelitis could still be present. The diminished activity indicates a vascular sub apply too compromise to allo w the radiopharmaceutical to reach the toe. IMPRESSION: Avascular or very poorly perfused first toe. The vascular supply is too compromised to a llow the radiopharmaceutical to reach the toe. Left first phalanx bone infection could still be prese nt. Abnormal 3 phase bone scan in the region of the first metatarsal head suspicious for osteomyelitis.
[2017-12-16] MEDS: SODIUM CHLORIDE 1 GM TAB PO SCH ×2 (12:11→17:39)
--- NOTE | 2017-12-16 16:00 | PN ---
Date of Progress Note: 12/16/2017 The patient seen and examined. Chart reviewed and case discussed with RN and Dr. Foster. Subjective: The patient says that he has intermittent pain in his foot. The patient went down for a bone scan today. Review of Systems: Negative except as above. Medications: Reviewed. Physical Examination: Vital Signs: Temperature 97.8, heart rate 99, blood pressure 103/51, respirations 18, O2 98% on room air. General: Awake, alert, oriented x3, in some mild distress. Elderly male, ill-appearing. BMI 31.3. Obese. CV: S1, S2. Peripheral pulses regular rate and rhythm. No murmurs. Femoral pulses present bilater ally. Respiratory: Clear to auscultation bilaterally. No wheezing. Abdomen: Soft, nontender, nondistended. Positive bowel sounds. Extremities: No clubbing, cyanosis, or edema. Integumentary: Dry gangrene on the left first toe. Some erythema. No discharge. Dry gangrene and ulcer on the second toe, plantar aspect. Neuro: Decreased sensation to light touch in bilateral lower extremities. Laboratory Data: Sodium 129, potassium 4, chloride 92, CO2 28, BUN 70, creatinine 2.44, glucose 124, calcium 8.2, iron 11, TIBC 335, transferrin 239. Vitamin B12 greater than 1500, folate 22. WBC 16. 9, H and H 8.2, 25.4, platelets 277, neutrophils 86%. Bone scan shows avascular or very poorly perfused first toe. The vascular supply is too compromised to allow the radiopharmaceutical to reach the toe. Left first phalanx bone infection could still be present. Abnormal three phase bone scan in the region of the first metatarsal head suspicious for os teomyelitis. Blood cultures no growth to date. Wound cultures showing 3+ mixed skin zackery. Assessment And Plan: A 67-year-old male with: 1.Left first toe infection with osteomyelitis found on bone scan. We will continue with IV antibiot ics. The patient is a very poor surgical candidate due to severe peripheral arterial disease. Appjay Foster's input. ID has been consulted. Blood cultures negative to date. Wound culture cat wing skin zackery. 2.Chronic atrial fibrillation. Continue Xarelto and amiodarone. 3.Peripheral vascular disease, extensive lower extremity peripheral arterial disease, but no focal h igh-grade stenosis or occlusion. The patient unable to tolerate Pletal due to history of congestive heart failure. The patient has been started on Plavix. 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 5.Diabetes mellitus type 2 with long-term use of insulin with skin complications and foot ulcer. He moglobin A1c was 5.9% less than 3 months ago. 6.Sepsis secondary to diabetic foot ulcer with dry gangrene and osteomyelitis. We will continue IV antibiotics and follow up on cultures. 7.Osteomyelitis of the first metatarsal head. 8.Hyponatremia. 9.Hypokalemia replaced and monitor. 10.Acute on chronic kidney injury. Creatinine level slightly decreased today. Appreciate Dr. Declan vargas's input. Plan: Continue IV antibiotics. LTAC referral. The patient will likely need vascular intervention. SHIRA Voice ID: [id number] Report ID: [id number]
--- NOTE | 2017-12-16 16:48 | PN ---
Subjective: The patient lying in bed. No new acute events. Continue to have some shortness of neo th. Objective: Vital Signs: Temperature 97.8, pulse 99, respirations 18, blood pressure 103/51. Lungs: Basal crackles. Heart: S1, S2. Regular. Abdomen: Soft, nontender. Bowel sounds positive. Extremities: Left foot big toe with gangrenous changes and second toe tip also has gangrenous change s. Right foot big toe with gangrenous changes. Laboratory Data: WBC 16.9, hemoglobin 8.2, platelets 277. Chemistry shows sodium 129, potassium 4, chloride 92, bicarb 78, BUN 70, creatinine 2.44, glucose is 124. Current Medications: Include Zosyn and vancomycin. Assessment And Plan: Bilateral big toe gangrenous changes, left foot second toe gangrenous changes m ost likely secondary to poor circulation. The patient needs interventional cardiology or vascular suarez rgery to evaluate the circulation and possibly opening obstruction. Continue IV antibiotics. ____ apply Betadine and foam dressing to the wounds. We will follow the patient closely. NF/MODL Voice ID: [id number] Report ID: [id number]
[2017-12-16] MEDS: RIVAROXABAN 20 MG TABLET PO SCH (17:39)
--- NOTE | 2017-12-16 17:54 | PN ---
Date of Progress Note: 12/16/2017 Subjective: The patient is awake, alert. No new complaint. Vital signs are stable. Afebrile. Laboratory Data: White count is down to 16.9. The patient had a bone scan, which is abnormal three phase bone scan in the region of the first metatarsal head suspicious for osteo. Avascular and very poorly perfused first toe. Vascular supplies too compromised to allow the radiopharmaceuticals to re ach the toe. Left first phalanx bone could still be present. Objective: No purulence, but there is some seepage of fluid on the dorsum of the left first toe. Th ere is that dry gangrene present. There is no fluctuance. Assessment: Cellulitis and osteomyelitis of left lower extremity with severe poor peripheral vascula r disease. Recommendations: At this time, we will try to treat the patient with IV antibiotics. If it does not improve, I do not think a toe amputation will heal. I think the best option for the patient would b e a below-knee amputation. Make that determination as to the timing of the surgery when, if the cristina ent does not improve with IV antibiotics and once his INR is corrected. We will follow this patient closely. JAQUAN/MODL Voice ID: [id number] Report ID: [id number]
--- NOTE | 2017-12-16 18:30 | P.PN ---
Date of Service: 12/16/17 Vital Signs Temp Pulse Resp BP Pulse Ox 98.5 F 80 18 92/54 L 100 12/16/17 16:00 12/16/17 16:00 12/16/17 16:00 12/16/17 16:00 12/16/17 16:00 Medications Acetaminophen (Tylenol -Extra Strength) 500 mg PO Q4HP PRN PRN Reason: [id number] Stop: 01/13/18 15:30 Atorvastatin Calcium (Lipitor) 10 mg PO BEDTIME BECKY Stop: 01/14/18 21:01 Last Admin: 12/15/17 20:46 Dose: 10 mg Calcitriol (Rocaltrol) 0.5 mcg PO DAILY BECKY Stop: 01/15/18 09:01 Last Admin: 12/16/17 09:15 Dose: 0.5 mcg Carvedilol (Coreg) 3.125 mg PO BID BECKY Stop: 01/14/18 09:01 Last Admin: 12/16/17 09:15 Dose: 3.125 mg Cholecalciferol (Vitamin D 5,000 Iu Cap) 5,000 unit PO DAILY BECKY Stop: 01/15/18 09:01 Last Admin: 12/16/17 09:15 Dose: 5,000 unit Clopidogrel Bisulfate (Plavix) 75 mg PO DAILY BECKY Stop: 01/15/18 09:01 Last Admin: 12/16/17 09:15 Dose: 75 mg Piperacillin Sod/Tazobactam Sod (Zosyn 3.375 Gm/100 Ml Ns Ivpb) 3.375 gm in 100 mls @ 100 mls/hr IVPB Q12HR BECKY Stop: 01/13/18 21:01 Last Admin: 12/16/17 09:15 Dose: 100 mls Vancomycin HCl 2 gm/ Sodium (Chloride) 500 mls @ 250 mls/hr IVPB Q36H BECKY PRN Reason: Protocol Stop: 01/15/18 10:01 Last Admin: 12/16/17 09:16 Dose: 500 mls Sodium Chloride (Ns 1000 Ml Ivbag) 1,000 mls @ 75 mls/hr IV .[id number] BECKY Stop: 01/15/18 09:01 Last Admin: 12/16/17 09:15 Dose: 1,000 mls Insulin Human Regular (Novolin -R) 0 unit SQ ACHS BECKY PRN Reason: Protocol Stop: 01/13/18 16:31 Last Admin: 12/16/17 17:38 Dose: 3 unit Ondansetron HCl (Zofran) 4 mg IV Q6HP PRN PRN Reason: NAUSEA / VOMITING Stop: 01/13/18 15:30 Rivaroxaban (Xarelto) 20 mg PO DAILY AT [facility] Stop: 01/14/18 17:01 Last Admin: 12/16/17 17:39 Dose: 20 mg Sodium Chloride (Normal Saline Flush) 10 ml IV BID BECKY Stop: 01/13/18 21:01 Last Admin: 12/16/17 09:16 Dose: 10 ml Sodium Chloride (Nacl Tabs) 1 gm PO TIDWM [facility] Stop: 01/15/18 12:01 Last Admin: 12/16/17 17:39 Dose: 1 gm Tramadol HCl (Ultram) 50 mg PO Q6H PRN PRN Reason: PAIN Stop: 01/13/18 19:32 Last Admin: 12/16/17 05:25 Dose: 50 mg Microbiology Results 12/14/17 13:15 Wound - Left Toe Gram Stain - Final 12/14/17 13:15 Wound - Left Toe Culture & Sensitivity - Preliminary 12/14/17 13:35 Blood - Other Aerobic Blood Culture - Preliminary No growth in 24 hours. 12/14/17 13:35 Blood - Other Anaerobic Blood Culture - Preliminary No growth in 24 hours. 12/14/17 13:10 Blood - Other Aerobic Blood Culture - Preliminary No growth in 24 hours. 12/14/17 13:10 Blood - Other Anaerobic Blood Culture - Preliminary No growth in 24 hours. Assessment/ Plan: Nephrology. Feeling better today. CPS stable without CP or SOB. No acute events overnight. Vitals, medications, blood work and imaging reviewed in the chart. General: Oriented x3, Cooperative HEENT: Atraumatic Neck: Supple Respiratory: Clear to auscultation bilaterally, Normal air movement Cardiovascular: Regular rate/rhythm, No rubs, Edema Gastrointestinal: Soft and benign, Non-distended Musculoskeletal: No clubbing, No contractures Integumentary: No rashes, Skin breakdown, Diabetic ulcer Neurological: Normal speech Laboratory Data (last 24 hrs) 12/14/17 13:10: B-Natriuretic Peptide 1788 H 12/14/17 13:10: PT 28.1 H, INR 2.36, APTT 33.2 12/14/17 13:10: WBC 20.0 H, Hgb 9.3 L, Hct 28.9 L, Plt Count 302 12/14/17 13:10: Sodium 134 L, Potassium 3.4 L, BUN 52 H, Creatinine 2.18 H, Glucose 126 H, Magnesium 2.5, Total Bilirubin 0.9, AST 20, ALT 13, Alkaline Phosphatase 85 Imagings Data: EXAM DESCRIPTION: RAD - Chest Single View - 12/14/2017 1:35 pm CLINICAL HISTORY: Shortness of breath COMPARISON: May 2017 TECHNIQUE: AP portable chest image was obtained 1318 hours . FINDINGS: No focal mass or consolidation. Lung markings are prominent but not clearly different. Cardiac silhouette is enlarged, similar to fractionally increased over the prior study. No vascular engorgement. No measurable pleural effusion and no pneumothorax. No gross bony abnormality seen. No acute aortic findings suspected. IMPRESSION: No focal lung parenchymal process seen. Cardiomegaly without additional findings of acute failure or volume overload. Conclusions/Impression: A/ JOHN likely ATN in the setting of NSAIDs. CKD III. HTN with CKD. DM II with CKD. Diastolic CHF, chronic. Anemia in chronic illness. Iron deficiency, severe. Hyponatemia. Hypokalemia. Hypocalcemia. Moderate malnutrition. PAD with LE ulcers. P/ Continue current POC and Medications. Change IVF to NS. Start salt tabs for short course. Agree with abx/ Recommend renal dosing. Monitor vancomycin levels. Encourage nutrition. Consider iron replacement. No NSAIDs. AM labs. Daily weight.
[2017-12-16] MEDS: ATORVASTATIN 10 MG TAB PO SCH (20:43)
--- NOTE | 2017-12-16 21:54 | PN ---
Date of Progress Note: 12/16/2017 Mr. Tan was admitted by Dr. Mckinnon. Dr. Foster and Dr. Dong were consulted. he has peripheral va scular disease. He has left toe gangrene. Dr. Dong was reluctant about angiography because of sev ere renal insufficiency. The patient understands. Dr. Foster agree. Bone scan is pending for today. We will be available for questions if cleared from a cardiac standpoint. ANITA/GINNA Voice ID: [id number] Report ID: [id number]
[2017-12-16] MEDS: ONDANSETRON 4 MG/2 ML VIAL IV PRN (21:58)
[2017-12-17] MEDS: TRAMADOL HCL 50 MG TAB PO PRN ×3 (05:03→20:29)
[2017-12-17 05:44] LABS: Absolute Monocytes 1.1 K/uL (0.1-1.3); Absolute Neutrophil 17.9 K/uL (1.8-8.0); Basophils % 0.5 % (0-1.3); Eosinophils % 0.1 % (0-4.4); Lymphocytes % 5.2 % (15.3-44.8); MCH 31.7 pg (27.0-35.0); MCV 95.1 fL (80-100); MPV 8.8 fL (7.6-11.3); Monocytes % 5.6 % (3.3-12.3)
[2017-12-17 05:46] LABS: RBC Red Blood Cell Count 2.42 M/uL (4.33-5.43)
[2017-12-17 05:55] LABS: Potassium 4.1 mEq/L (3.6-5.0); Uric Acid 10.6 mg/dL (4.8-8.7)
--- NOTE | 2017-12-17 07:46 | P.PN ---
Date of Service: 12/17/17 Notified of hemoglobin of 7.7. Patient is to be transferred. Hemoglobin yesterday was 8.0. This should not hold up his transfer. His vital signs have been stable. If hemoglobin continues to drop can get transfusion at [facility].
[2017-12-17] MEDS: INSULIN -REGULAR HUMAN 50 UNIT/0.5 ML ML SQ SCH ×4 (08:40→20:25)
[2017-12-17] MEDS: PIPER/TAZO/NS 3.375gm 3.375 GM/100 ML BAG IVPB SCH ×2 (08:40→20:19)
[2017-12-17] MEDS: CARVEDILOL 3.125 MG TAB PO SCH ×2 (08:41→20:24)
[2017-12-17] MEDS: CALCITROL 0.25 MCG CAP PO SCH (08:41)
[2017-12-17] MEDS: VITAMIN D 5,000 UNIT CAP PO SCH (08:41)
[2017-12-17] MEDS: SODIUM CHLORIDE 1 GM TAB PO SCH ×3 (08:41→16:27)
[2017-12-17] MEDS: CLOPIDOGREL 75 MG TABLET PO SCH (08:41)
[2017-12-17 11:01] LABS: Protime INR 4.72
[2017-12-17] MEDS: NA CHLORIDE 0.9% 1,000 ML IV SCH (11:40)
--- NOTE | 2017-12-17 13:40 | PN ---
Date of Progress Note: 12/17/2017 Subjective: The patient is awake, alert. No new complaint. Objective: Vital signs: Stable, afebrile. Extremities: Examination of the left lower extremity reveals increasing in the redness that is not i mproving on IV antibiotics and that the toe looks worse. Laboratory Data: White count has gone up to 20,000. Assessment: Left first toe cellulitis with osteomyelitis and severe peripheral vascular disease. Recommendation: As patient is septic, we will go ahead and do a left first toe transmetatarsal amput ation. The patient does understand risks, benefits, and alternatives and agrees to procedure; denny r, his INR is elevated and that will have to be checked and corrected and hopefully we can get him in the operating room by tomorrow. I did advise him that the chances of this wound healing are low bec ause of his severe peripheral vascular disease; however, we can and try all conservative measures aft er surgery such as hyperbarics to improve wound healing on the patient and should that not succeed, t hen eventually the patient may need a below-knee amputation or an above-knee amputation and this was discussed in detail with the patient. He understands and agrees. The patient has already been accep bill to an LTAC and he will go there after surgery. JAQUAN/GINNA Voice ID: [id number] Report ID: [id number]
[2017-12-17] MEDS: ONDANSETRON 4 MG/2 ML VIAL IV PRN (16:27)
--- NOTE | 2017-12-17 18:46 | PN ---
Date of Progress Note: 12/17/2017 Subjective: The patient is seen and examined, chart reviewed, and case discussed with RN and Dr. Saravanan feliciano. The patient has worsening condition secondary to his osteomyelitis. Review of Systems: Negative except as above. Medications: Reviewed. Objective: Vital Signs: Temperature 97.5, heart rate 106, blood pressure 112/65, respirations 16, O 2 97% on 2 L via nasal cannula. General: Awake, alert, oriented, in some mild distress. Elderly male, obese, BMI 31, somewhat ill-a ppearing. CV: S1, S2. Irregular rate and irregular rhythm. Peripheral pulses are absent on the posterior tib ialis and dorsalis pedis. Femoral pulses are present bilaterally. Respiratory: Clear to auscultation bilaterally. No wheezing. No stridor. Abdomen: Soft, nontender, and nondistended. Positive bowel sounds. Extremities: No clubbing, cyanosis, edema. Skin: Dry gangrene on the left first toe with some surrounding erythema. No discharge. Dry gangren e and ulceration on the second toe plantar aspect. Neuro: Decreased sensation to light touch in bilateral lower extremities. Laboratory Data: Sodium 130, potassium 4.1, chloride 95, CO2 is 26, BUN 74, creatinine 2.21, glucose 180, uric acid 10.6, calcium 8. INR 4.72. WBC 20.2, H and H 7.7 and 23, platelets 273, neutrophils 88.6%. Blood cultures, no growth to date. Wound culture growing 3+ mixed skin zackery. Assessment And Plan: A 67-year-old male with; 1.Left first toe infection with osteomyelitis on bone scan. The patient will need transmetatarsal a mputation; however, INR is elevated. The patient is on Xarelto. Appreciate Dr. Foster's input. The patient does have risk of nonhealing wound due to severe peripheral arterial disease. We will contin ue IV antibiotics. Cultures negative to date. 2.Chronic atrial fibrillation, on amiodarone. Xarelto held. We will give FFP to reverse INR. 3.Peripheral vascular disease, extensive lower extremity peripheral arterial disease without high-gr madelyn stenosis or occlusion. We will hold Plavix due to impending surgery. 4.Chronic systolic and diastolic heart failure, currently compensated. 5.Diabetes mellitus type 2 with long-term use of insulin with skin complications and foot ulcer. He moglobin A1c 5.9%. Continue sliding scale insulin. 6.Sepsis secondary to diabetic foot ulcer and dry gangrene and osteomyelitis. Continue antibiotics. Cultures negative to date. 7.Osteomyelitis of first metatarsal head. 8.Hyponatremia, improving. We will continue to monitor. 9.Hypokalemia. We will replace and monitor. 10.Acute on chronic kidney injury. Creatinine trending down very slowly. Continue IV fluids and ap preciate Nephrology input. /GINNA Voice ID: [id number] Report ID: [id number]
[2017-12-17] MEDS: ATORVASTATIN 10 MG TAB PO SCH (20:24)
--- NOTE | 2017-12-17 21:55 | PN ---
Subjective: The patient is lying in bed. No new acute events. Chart reviewed. Objective: Vital Signs: Temperature 98, respirations 18, blood pressure 113/66. Lungs: Basal crackles. Heart: S1, S2. Regular. Abdomen: Soft, nontender. Bowel sounds positive. Extremities: Trace edema. Laboratory Data: Shows WBC, 20,000 white count, hemoglobin 7.7, platelets 273. Chemistry shows sodi um 130, potassium 4.1, chloride 95, bicarb 26, BUN 74, creatinine 2.2, glucose 180. Micro, no cultur es positive yet. Assessment And Plan: Arterial wounds to the left big toe and second toe. Right foot big toe also feliciano s gangrenous changes. Continue antibiotic. The patient needs revascularization and possible surgery scheduled for tomorrow. We will follow the patient as needed. NF/MODL Voice ID: [id number] Report ID: [id number]
--- NOTE | 2017-12-17 22:01 | PN ---
Date of Progress Note: 12/17/2017 Subjective: The patient is seen at bedside. No overnight events reported. The patient states that he is feeling pain in the area of his toe. Otherwise denies any orthopnea, dyspnea, fevers, chills, nausea, vomiting, or diarrhea. Objective: Vital Signs: Blood pressure is 112/72, pulse 93, temperature 98.5. General: No acute distress. Heart: Tachycardic, regular. No murmurs, rubs, or gallops. Lungs: Crackles which resolve posttussi vely. Abdomen: Soft, nontender, nondistended. Positive bowel sounds x4. Extremities: With slight edema. Laboratory Data: CBC; WBC 20.2, hemoglobin 7.7, hematocrit 23, platelets 273. Chemistry; sodium 130 , potassium 4.1, chloride 95, CO2 of 26, BUN 74, creatinine 2.21, glucose 180, uric acid 10.6, calciu m 8. BUN and creatinine has improved from a peak of 6.62 to 2.73, which was on the 26th. Microbiolo gy data, blood cultures negative at 24 hours. Current Medications: Reviewed. Of note, the patient on Zosyn 3.375 q.12, calcitriol 0.5 mcg p.o. da michael, vitamin D 5000 units daily. Other medications were reviewed. Impression: 1.Acute kidney injury. 2.Sepsis. 3.Peripheral vascular disease. 4.Hypertension. 5.Chronic kidney disease. 6.Diastolic congestive heart failure, chronic. 7.Anemia in acute illness, iron deficiency. 8.Electrolyte abnormalities. Plan: The patient is receiving normal saline at 75 mL an hour. The patient is now receiving FFP for supratherapeutic INR. We will hold normal saline as the patient may likely also receive blood trans fusion. The patient is at high risk for developing isadora pulmonary edema in the setting of crystallo id as well as oncotic effusions. Use Lasix p.r.n. We will start to re-evaluate the patient's blood pressure after FFP is completed. If blood pressure drops below 110, to reinitiate IV fluids, normal saline at 75 mL an hour. Unless the blood is being transfused, we would continue to hold normal sali ne as mentioned and reinstituting only if blood pressure is low. We will dose all antibiotics. Abso lutely no NSAIDs. Avoid contrast when possible. The patient does have iron-deficiency anemia and th at should improve. The patient received infusion. Otherwise, we will replete the patient's iron lev els after his infection shows improvement. /GINNA Voice ID: [id number] Report ID: [id number]
[2017-12-17] MEDS ORDERED: NA CHLORIDE 0.9% 250 ML ONE (22:42)
[2017-12-18] MEDS: VANCOMYCIN 2 GM in NA CHLORIDE 0.9% 500 ML IVPB SCH (00:15)
[2017-12-18] MEDS ORDERED: SODIUM CHLORIDE 0.9% 10ML INJ IV PRN ×2 (04:00)
[2017-12-18 04:57] LABS: Absolute Lymphocytes (CBC) 1.3 K/uL (0.7-4.9); Absolute Monocytes 1.6 K/uL (0.1-1.3); Absolute Neutrophil 17.8 K/uL (1.8-8.0); Basophils % 0.7 % (0-1.3); Eosinophils % 0.5 % (0-4.4); MCH 31.2 pg (27.0-35.0); MCV 94.4 fL (80-100); MPV 9.1 fL (7.6-11.3); Monocytes % 7.8 % (3.3-12.3); RBC Red Blood Cell Count 2.22 M/uL (4.33-5.43)
[2017-12-18 05:00] LABS: Potassium 4.4 mEq/L (3.6-5.0)
[2017-12-18 05:06] LABS: Protime INR 4.36
[2017-12-18] MEDS: MORPHINE 2 MG/ML SYR IV PRN ×2 (05:50→15:47)
[2017-12-18] MEDS: INSULIN -REGULAR HUMAN 50 UNIT/0.5 ML ML SQ SCH ×4 (07:30→21:00)
[2017-12-18] MEDS: SODIUM CHLORIDE 1 GM TAB PO SCH ×3 (08:00→18:13)
--- NOTE | 2017-12-18 08:25 | RAD REPORT ---
EXAM DESCRIPTION: RAD - Chest Single View - 12/18/2017 1:34 am CLINICAL HISTORY: PICC line placement. COMPARISON: None. FINDINGS: Portable chest was obtained following placement of a right upper extremity PICC line. The catheter tip is in the SVC.
[2017-12-18] MEDS: VITAMIN D 5,000 UNIT CAP PO SCH (09:00)
[2017-12-18] MEDS: CARVEDILOL 3.125 MG TAB PO SCH ×3 (09:00→20:56)
[2017-12-18] MEDS: CALCITROL 0.25 MCG CAP PO SCH (09:00)
[2017-12-18] MEDS ORDERED: FUROSEMIDE 40 MG TABLET PO ONE (09:04)
[2017-12-18] MEDS: PIPER/TAZO/NS 3.375gm 3.375 GM/100 ML BAG IVPB SCH ×2 (09:56→20:57)
[2017-12-18] MEDS: SODIUM CHLORIDE 0.9% 10ML INJ IV SCH ×2 (09:56→20:57)
--- NOTE | 2017-12-18 12:01 | PN ---
Date of Progress Note: 12/18/2017 Subjective: The patient is awake, alert. Vital signs stable. Afebrile. His INR today is 4.36. Hi s H and H are 6.9 and 21[place] [id number]. Objective: On his physical exam, no significant change in infection of the left great toe. Assessment: Left great toe osteomyelitis and cellulitis, gangrene with severe peripheral vascular di sease. Recommendations: The patient will get 1 unit of packed RBCs, 2 units of FFP, re-evaluate the INR, an d hopefully we can get to him later today. If not, we will have to wait another day. Plan of care d iscussed with the patient in detail. /MODL Voice ID: [id number] Report ID: [id number]
[2017-12-18] MEDS: TRAMADOL HCL 50 MG TAB PO PRN (18:13)
[2017-12-18] MEDS ORDERED: NA CHLORIDE 0.9% 100 ML ONE (18:47)
--- NOTE | 2017-12-18 18:47 | PN ---
Date of Progress Note: 12/18/2017 The patient is seen and examined. Chart reviewed. Case discussed with RN and Dr. Foster. History: The patient unfortunately still has an elevated INR, unable to go for surgery. The patient received PICC line last night. Review of Systems: Negative except as above. Medications: Reviewed. Physical Examination: Vital Signs: Temperature 97, heart rate 90, blood pressure 167/76, respirations 18, O2 96% on 2 L vi a nasal cannula. General: Awake, alert, oriented x3. Elderly male, somewhat ill appearing. BMI is 31. Obese. CV: S1, S2. No murmurs. Irregularly irregular. Peripheral pulses not present except femoral pulse s. Respiratory: Moving air well. No wheezing. No stridor. No use of accessory muscles. Gastrointestinal: Abdomen is soft, nontender, nondistended. Positive bowel sounds. Extremities: No clubbing, cyanosis. Trace pedal edema. Neurologic: Nonfocal. Integumentary: The patient has dry gangrene in the first left toe with some surrounding erythema. N o discharge. Some ulceration on the second toe of the right foot on the plantar aspect. Laboratory Data: INR 4.36. WBC 21, H and H 6.9 and 21, platelets 269. Sodium 128, potassium 4.4, c hloride 92, CO2 25, BUN 80, creatinine 2.26, glucose 112. Serum osmolality 296, calcium 8. Blood cu ltures, no growth to date. Wound cultures showing skin zackery. Chest x-ray shows PICC line placement . Assessment And Plan: A 67-year-old male with: 1.Left first toe diabetic wound with osteomyelitis. The patient awaiting transmetatarsal amputation . INR, however, still elevated. Appreciate Dr. Foster's input. Cultures negative to date. 2.Chronic atrial fibrillation, on amiodarone. Anticoagulation held in anticipation of surgery. 3.Coagulopathy. We will give FFP x2. 4.Anemia. We will transfuse 1 unit PRBCs. 5.Peripheral vascular disease, severe, without any high-grade stenosis or occlusion. Plavix held. 6.Chronic systolic and diastolic heart failure, compensated. 7.Diabetes mellitus type 2 with long-term use of insulin with skin complications and foot ulcer. Co ntinue sliding scale insulin. 8.Sepsis secondary to diabetic foot ulcers and osteomyelitis. Continue antibiotics. Cultures negat deloris to date. 9.Osteomyelitis of first metatarsal head of the left foot. 10.Hyponatremia. Sodium trending down. We will continue to monitor fluid restriction. 11.Hypokalemia, replace and monitor. 12.Acute on chronic kidney injury. Creatinine has stabilized. Appreciate Nephrology input. /GINNA Voice ID: [id number] Report ID: [id number]
[2017-12-18] MEDS: ATORVASTATIN 10 MG TAB PO SCH (20:55)
[2017-12-19 01:03] LABS: Hematocrit 24.4 % (39.6-49.0)
[2017-12-19 01:05] LABS: Protime INR 3.56
[2017-12-19] MEDS ORDERED: NA CHLORIDE 0.9% 100 ML ONE (03:29)
[2017-12-19 04:51] LABS: Absolute Lymphocytes (CBC) 1.2 K/uL (0.7-4.9); Absolute Monocytes 1.2 K/uL (0.1-1.3); Absolute Neutrophil 17.1 K/uL (1.8-8.0); Basophils % 0.7 % (0-1.3); Eosinophils % 0.5 % (0-4.4); Hematocrit 24.5 % (39.6-49.0); Lymphocytes % 6.1 % (15.3-44.8); MCH 30.8 pg (27.0-35.0); MPV 9.4 fL (7.6-11.3); Monocytes % 6.3 % (3.3-12.3); RBC Red Blood Cell Count 2.58 M/uL (4.33-5.43)
[2017-12-19 04:59] LABS: Protime INR 3.12
[2017-12-19] MEDS ORDERED: VITAMIN K (ADULT) 10 MG/ML SQ SCH (05:00)
[2017-12-19 05:16] LABS: Potassium 4.3 mEq/L (3.6-5.0)
[2017-12-19] MEDS: TRAMADOL HCL 50 MG TAB PO PRN ×3 (05:18→18:30)
[2017-12-19 06:17] LABS: Blood Morphology Comment NOT SEEN (NOT SEEN); Platelet Estimate ADEQ
[2017-12-19] MEDS ORDERED: NA CHLORIDE 0.9% 250 ML ONE ×3 (06:39→22:20)
[2017-12-19] MEDS: INSULIN -REGULAR HUMAN 50 UNIT/0.5 ML ML SQ SCH ×4 (07:30→20:52)
[2017-12-19] MEDS: PIPER/TAZO/NS 3.375gm 3.375 GM/100 ML BAG IVPB SCH ×2 (09:23→21:48)
[2017-12-19] MEDS: SODIUM CHLORIDE 0.9% 10ML INJ IV SCH (09:23)
[2017-12-19] MEDS: VANCOMYCIN 2 GM in NA CHLORIDE 0.9% 500 ML IVPB SCH ×2 (09:23→10:00)
[2017-12-19] MEDS: SODIUM CHLORIDE 1 GM TAB PO SCH ×3 (09:24→18:09)
[2017-12-19] MEDS: CALCITROL 0.25 MCG CAP PO SCH (09:25)
[2017-12-19] MEDS: VITAMIN D 5,000 UNIT CAP PO SCH (09:25)
[2017-12-19] MEDS: CARVEDILOL 3.125 MG TAB PO SCH ×2 (09:25→20:51)
[2017-12-19] MEDS ORDERED: ACETIC ACID 0.25% IRRIG IRR PRN (10:10)
[2017-12-19] MEDS ORDERED: FUROSEMIDE 40 MG/4 ML VIAL IV ONE (13:10)
[2017-12-19] MEDS ORDERED: ENSURE ENLIVE 237 ML CAN PO SCH (14:00)
--- NOTE | 2017-12-19 14:00 | PN ---
Date of Progress Note: 12/19/2017 Subjective: The patient is awake, alert. No complaint. Objective: Vital Signs: Stable. Afebrile. Extremities: No significant change still with erythema, warmth, and edema, gangrene left great toe. Laboratory Data: INR is greater than 3. Assessment: Gangrene, cellulitis, osteomyelitis, left great toe with severe peripheral vascular dise ase. Recommendation: Correct INR to less than 2. We will tentatively schedule this patient for surgery t omorrow. Continue IV antibiotics. /MODL Voice ID: [id number] Report ID: [id number]
--- NOTE | 2017-12-19 16:09 | PN ---
Subjective: The patient lying in bed. Denies any headache, nausea, vomiting, chest pain, abdominal pain, constipation, diarrhea, was not able to get surgery done today as the patient's INR was elevate d. Objective: Vital Signs: Temperature 96.2, pulse 115, respirations 16, blood pressure 135/70. Lungs: Basal crackles. Heart: S1, S2. Regular. Abdomen: Soft, nontender. Bowel sounds positive. Extremities: Cyanotic changes noted on the left foot and right foot. Gangrenous changes noted on bi g toe and second toe on the left foot, big toe on the right foot. Laboratory Data: Shows WBC 29499, hemoglobin 7.9, platelets are 275. Chemistry shows sodium 130, po tassium 4.3, chloride 94, bicarb 27, BUN 84, creatinine 2.16. Assessment And Plan: Arterial ulcer to the left and right foot with gangrenous changes. Recommend t o have vascular surgery, open the circulation prior to the surgery. Continue IV antibiotic. Prognos is is guarded. We will follow the patient closely. We will discuss the case with surgical team to [facility] vascular surgery team open the circulation prior to the surgery. NF/MODL Voice ID: [id number] Report ID: [id number]
[2017-12-19 18:33] LABS: Hematocrit 27.7 % (39.6-49.0)
[2017-12-19 18:37] LABS: Protime INR 2.99
--- NOTE | 2017-12-19 19:21 | PN ---
Date of Progress Note: 12/19/2017 Subjective: The patient is seen and examined. Chart reviewed and case discussed with RN. The patie nt's INR is improving. No other significant complaints. Pain is tolerable. Review of Systems: Negative except as above. Medications: Reviewed. Physical Examination: Vital Signs: Temperature 96.2, heart rate 115, blood pressure 135/70, respirations 16, and O2 98% on 2 L via nasal cannula. General: Awake, alert, oriented x3, in no acute distress. Elderly male, somewhat ill appearing. BM I 31. CV: S1, S2. Irregularly irregular. Femoral and peripheral pulses present. Respiratory: moving air well bilaterally. No wheezing. Abdomen: Soft, nontender, nondistended. Positive bowel sounds. Extremities: No clubbing, cyanosis, or edema. Neurologic: Nonfocal. Integumentary: The patient has dry gangrene on the left first toe. No drainage. Laboratory Data: Sodium 130, potassium 4.3, chloride 94, CO2 27 BUN 84, creatinine 2.16, and glucose 118. Lactic acid 24.9, repeat is 29.9, calcium 8.2, and INR 3.12. WBC 19.8, H and H 7.9, 24.5, and platelets 275. Blood cultures, no growth. Final wound culture from the left toe shows skin zackery. Assessment And Plan: A 67-year-old male with; 1.Left first toe diabetic wound with osteomyelitis. The patient is scheduled for transmetatarsal am putation by Dr. Foster. Cultures negative to date. 2.Chronic atrial fibrillation, on amiodarone. Anticoagulation held in anticipation of surgery. 3.Coagulopathy. The patient has received 4 units of FFP. 4.Anemia. Has been transfused 2 units of PRBCs. We will monitor H and H. 5.Peripheral vascular disease, severe without high-grade stenosis or occlusion. Plavix held due to surgery. 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 7.Diabetes mellitus type 2 with long-term use of insulin with skin complications, foot ulcer. We wi ll continue sliding scale insulin. 8.Sepsis secondary to diabetic foot ulcers and osteomyelitis. Cultures negative to date. We will c ontinue antibiotics. ID on the case. 9.Osteomyelitis of the first metatarsal head of the left foot. 10.Hyponatremia. We will place on fluid restriction. Appreciate Nephrology input. 11.Hypokalemia. We will replace and monitor. 12.Acute on chronic kidney injury. Creatinine currently stabilized, likely secondary to acute tubul ar necrosis from over NSAID use. Appreciate Dr. Felix's input. We will continue to monitor creati nine. 13.Gastrointestinal and deep venous thrombosis prophylaxis with PPI and SCDs. SA/MODL Voice ID: [id number] Report ID: [id number]
[2017-12-19] MEDS ORDERED: VITAMIN K (ADULT) 10 MG/ML SQ ONE (20:00)
[2017-12-19] MEDS: ATORVASTATIN 10 MG TAB PO SCH (20:51)
--- NOTE | 2017-12-19 21:32 | P.PN ---
Date of Service: 12/18/17 Vital Signs Temp Pulse Resp BP Pulse Ox 96.1 F L 103 H 16 99/62 100 12/19/17 16:00 12/19/17 20:51 12/19/17 16:00 12/19/17 20:51 12/19/17 16:00 Medications Acetaminophen (Tylenol -Extra Strength) 500 mg PO Q4HP PRN PRN Reason: [id number] Stop: 01/13/18 15:30 Atorvastatin Calcium (Lipitor) 10 mg PO BEDTIME BECKY Stop: 01/14/18 21:01 Last Admin: 12/19/17 20:51 Dose: 10 mg Calcitriol (Rocaltrol) 0.5 mcg PO DAILY BECKY Stop: 01/15/18 09:01 Last Admin: 12/19/17 09:25 Dose: 0.5 mcg Carvedilol (Coreg) 3.125 mg PO BID BECKY Stop: 01/14/18 09:01 Last Admin: 12/19/17 20:51 Dose: 3.125 mg Cholecalciferol (Vitamin D 5,000 Iu Cap) 5,000 unit PO DAILY BECKY Stop: 01/15/18 09:01 Last Admin: 12/19/17 09:25 Dose: 5,000 unit Piperacillin Sod/Tazobactam Sod (Zosyn 3.375 Gm/100 Ml Ns Ivpb) 3.375 gm in 100 mls @ 100 mls/hr IVPB Q12HR BECKY Stop: 01/13/18 21:01 Last Admin: 12/19/17 09:23 Dose: 100 mls Vancomycin HCl 2 gm/ Sodium (Chloride) 500 mls @ 250 mls/hr IVPB Q48H BECKY PRN Reason: Protocol Stop: 01/20/18 10:01 Insulin Human Regular (Novolin -R) 0 unit SQ ACHS BECKY PRN Reason: Protocol Stop: 01/13/18 16:31 Last Admin: 12/19/17 20:52 Dose: Not Given Morphine Sulfate (Morphine Sulfate) 2 mg IV Q4H PRN PRN Reason: PAIN MODERATE TO SEVERE Stop: 01/17/18 05:36 Last Admin: 12/18/17 15:47 Dose: 2 mg Ondansetron HCl (Zofran) 4 mg IV Q6HP PRN PRN Reason: NAUSEA / VOMITING Stop: 01/13/18 15:30 Last Admin: 12/17/17 16:27 Dose: 4 mg Sodium Chloride (Normal Saline Flush) 10 ml IV BID BECKY Stop: 01/13/18 21:01 Last Admin: 12/19/17 20:53 Dose: 10 ml Sodium Chloride (Nacl Tabs) 1 gm PO TIDWM BECKY Stop: 01/15/18 12:01 Last Admin: 12/19/17 18:09 Dose: 1 gm Sodium Chloride (Sodium Chloride 10 Ml Inj) 10 ml IV PRN PRN PRN Reason: PICC LINE FLUSH Stop: 01/17/18 04:01 Sodium Chloride (Sodium Chloride 10 Ml Inj) 20 ml IV PRN PRN PRN Reason: PICC LINE FLUSH Stop: 01/17/18 04:01 Last Admin: 12/18/17 21:13 Dose: 20 ml Sodium Chloride (Sodium Chloride 10 Ml Inj) 10 ml IV BID BECKY Stop: 01/17/18 09:01 Last Admin: 12/19/17 09:23 Dose: 10 ml Tramadol HCl (Ultram) 50 mg PO Q6H PRN PRN Reason: PAIN Stop: 01/13/18 19:32 Last Admin: 12/19/17 18:30 Dose: 50 mg Microbiology Results 12/14/17 13:35 Blood - Other Aerobic Blood Culture - Final No growth in 5 days. 12/14/17 13:35 Blood - Other Anaerobic Blood Culture - Final No growth in 5 days. 12/14/17 13:10 Blood - Other Aerobic Blood Culture - Final No growth in 5 days. 12/14/17 13:10 Blood - Other Anaerobic Blood Culture - Final No growth in 5 days. 12/14/17 13:15 Wound - Left Toe Gram Stain - Final 12/14/17 13:15 Wound - Left Toe Culture & Sensitivity - Final Assessment/ Plan: Nephrology. Feeling more swollen today. CPS stable without CP or SOB. No acute events overnight. Vitals, medications, blood work and imaging reviewed in the chart. General: Oriented x3, Cooperative HEENT: Atraumatic Neck: Supple Respiratory: Clear to auscultation bilaterally, Normal air movement Cardiovascular: Regular rate/rhythm, No rubs, Edema Gastrointestinal: Soft and benign, Non-distended Musculoskeletal: No clubbing, No contractures Integumentary: No rashes, Skin breakdown, Diabetic ulcer Neurological: Normal speech Laboratory Data (last 24 hrs) 12/14/17 13:10: B-Natriuretic Peptide 1788 H 12/14/17 13:10: PT 28.1 H, INR 2.36, APTT 33.2 12/14/17 13:10: WBC 20.0 H, Hgb 9.3 L, Hct 28.9 L, Plt Count 302 12/14/17 13:10: Sodium 134 L, Potassium 3.4 L, BUN 52 H, Creatinine 2.18 H, Glucose 126 H, Magnesium 2.5, Total Bilirubin 0.9, AST 20, ALT 13, Alkaline Phosphatase 85 Imagings Data: EXAM DESCRIPTION: RAD - Chest Single View - 12/14/2017 1:35 pm CLINICAL HISTORY: Shortness of breath COMPARISON: May 2017 TECHNIQUE: AP portable chest image was obtained 1318 hours . FINDINGS: No focal mass or consolidation. Lung markings are prominent but not clearly different. Cardiac silhouette is enlarged, similar to fractionally increased over the prior study. No vascular engorgement. No measurable pleural effusion and no pneumothorax. No gross bony abnormality seen. No acute aortic findings suspected. IMPRESSION: No focal lung parenchymal process seen. Cardiomegaly without additional findings of acute failure or volume overload. Conclusions/Impression: A/ JOHN likely ATN in the setting of NSAIDs. CKD III. HTN with CKD. DM II with CKD. Diastolic CHF, chronic. Anemia in chronic illness. Iron deficiency, severe. Hyponatemia. Hypokalemia. Hypocalcemia. Moderate malnutrition. PAD with LE ulcers. P/ Continue current POC and Medications. Give a dose of IV Lasix. Agree with abx/ Recommend renal dosing. Monitor vancomycin levels. Encourage nutrition. Consider iron replacement. No NSAIDs. AM labs. Daily weight.
[2017-12-20] MEDS: TRAMADOL HCL 50 MG TAB PO PRN ×4 (00:27→19:46)
[2017-12-20] MEDS: SODIUM CHLORIDE 0.9% 10ML INJ IV SCH ×2 (00:37→08:05)
[2017-12-20 03:08] LABS: Protime INR 2.46
[2017-12-20 04:57] LABS: Protime INR 2.54
[2017-12-20 05:01] LABS: Absolute Lymphocytes (CBC) 1.5 K/uL (0.7-4.9); Absolute Monocytes 1.3 K/uL (0.1-1.3); Absolute Neutrophil 17.1 K/uL (1.8-8.0); Basophils % 0.8 % (0-1.3); Eosinophils % 1.1 % (0-4.4); Hematocrit 26.3 % (39.6-49.0); Lymphocytes % 7.6 % (15.3-44.8); MCH 30.8 pg (27.0-35.0); MCV 93.8 fL (80-100); MPV 9.8 fL (7.6-11.3); Monocytes % 6.5 % (3.3-12.3)
[2017-12-20 05:32] LABS: Potassium 4.4 mEq/L (3.6-5.0); Uric Acid 12.3 mg/dL (4.8-8.7)
[2017-12-20 05:35] LABS: Blood Morphology Comment NOT SEEN (NOT SEEN); Platelet Estimate ADEQ
[2017-12-20] MEDS ORDERED: VITAMIN K (ADULT) 10 MG/ML SQ SCH (07:00)
[2017-12-20] MEDS: INSULIN -REGULAR HUMAN 50 UNIT/0.5 ML ML SQ SCH ×4 (07:30→21:00)
[2017-12-20] MEDS: CALCITROL 0.25 MCG CAP PO SCH (08:04)
[2017-12-20] MEDS: VITAMIN D 5,000 UNIT CAP PO SCH (08:04)
[2017-12-20] MEDS: SODIUM CHLORIDE 1 GM TAB PO SCH ×3 (08:04→17:05)
[2017-12-20] MEDS: CARVEDILOL 3.125 MG TAB PO SCH ×2 (08:14→21:18)
[2017-12-20] MEDS ORDERED: ZINC SULFATE 220 MG CAP PO SCH (09:00)
[2017-12-20] MEDS ORDERED: ASCORBIC ACID 500 MG TABLET PO SCH (09:00)
[2017-12-20] MEDS: PIPER/TAZO/NS 3.375gm 3.375 GM/100 ML BAG IVPB SCH ×2 (09:22→21:18)
[2017-12-20] MEDS: LACTOBACILLUS/ACIDOPHILUS TAB PO SCH ×2 (13:16→21:17)
[2017-12-20] MEDS ORDERED: FUROSEMIDE 40 MG/4 ML VIAL IV ONE (13:33)
[2017-12-20] MEDS ORDERED: NA CHLORIDE 0.9% 250 ML ONE (15:26)
--- NOTE | 2017-12-20 16:16 | PN ---
Date of Progress Note: 12/20/2017 Subjective: The patient seen and examined, chart reviewed and case discussed with RN. The patient r eports multiple episodes of diarrhea. The pain is tolerable. Review of Systems: Negative except as above. Medications: Reviewed. Physical Examination: Vital Signs: Temperature 97.4, heart rate 105, blood pressure 125/66, respirations 22, O2 saturation 97% on 2 L via nasal cannula. General: Awake, alert, oriented x3, in some mild distress. Elderly male, obese. BMI 31. Ill-appea ring. CV: S1, S2. Irregularly irregular. Femoral pulses present. Respiratory: Moving air well bilaterally. No wheezing. Abdomen: Soft, nontender, nondistended. Positive bowel sounds. Extremities: No clubbing, cyanosis, edema. Skin: The patient has dry gangrene on the left first toe and ulceration on the right foot plantar as pect first metatarsal. Neurologic: Nonfocal. Laboratory Data: Sodium 134, potassium 4.4, chloride 93, CO2 26, BUN 82, creatinine 2.01, and glucos e 108. Uric acid 4.3. BNP 3428. WBC 20.3, H and H 8.6, 26.3, and platelets 275. INR 2.46, 2.54. Blood cultures no growth. Final wound culture shows skin zackery. Assessment And Plan: A 67-year-old male with; 1.Left first toe diabetic wound with osteomyelitis, awaiting transmetatarsal amputation once INR is less than 2. Cultures negative to date. 2.Chronic atrial fibrillation, on amiodarone. Anticoagulation held in anticipation of surgery. Cur rently, INR is above 2. 3.Coagulopathy. The patient again receiving FFP and vitamin K. 4.Anemia, normocytic normochromic, status post 2 units PRBCs. Transfuse as needed. Monitor H and H . 5.Peripheral vascular disease, severe, without high-grade stenosis or occlusion. Resume Plavix afte r surgery. 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 7.Diabetes mellitus type 2 with long-term use of insulin with skin complications and foot ulcer. Co ntinue sliding scale insulin. 8.Sepsis secondary to diabetic foot ulcers, osteomyelitis. Continue IV antibiotics. Cultures negat deloris. 9.Diarrhea. We will check Clostridium difficile. Add probiotics. 10.Osteomyelitis of the first metatarsal of the metatarsal head of the left foot. 11.Hyponatremia. Fluid restriction, improving. We will continue to monitor. 12.Hypokalemia, replace and monitor. 13.Acute on chronic kidney injury. Creatinine is trending down, likely secondary to acute tubular n ecrosis from NSAID overuse. Appreciate Dr. Felix's input. We will continue to monitor creatinine. 14.Gastrointestinal and deep venous thrombosis prophylaxis with PPI and SCDs. SA/MODL Voice ID: [id number] Report ID: [id number]
--- NOTE | 2017-12-20 18:13 | PN ---
Subjective: The patient is a 67-year-old male with significant gangrene ulcer on his left first toe. He is awaiting surgery but his INR has been elevated and the team is trying to get that down. He h as ordered some FFP. He denies having any kidney problems before. States he has never seen a kidney doctor. Understands that he has some kidney disease right now and says that he has already seen Dr. Fernandez also my partner in the hospital and understands and has been told that he has some kidney dise ase. He has an improvement in his creatinine. He is not uncomfortable currently. He is mildly shor t of breath but that is very much his baseline. He states that he is feeling good. He is talking in full sentences. He will be getting some FFP that has been ordered to bring his INR down so he can g et amputation of this left first toe that is looking gangrenous. Objective: Vital Signs: Stable. Lungs: Clear. Abdomen: Soft. Extremities: Reveal no edema. Galilea escobedo does have this left toe that is looking tenderness and has an open ulcer with some bluish discolora tion around the toe. Assessment And Plan: Gangrene/ulcer/osteomyelitis on foot. The patient on antibiotics being followe d by his surgeon. Awaiting surgery to get amputation of this toe once his INR is a bit low in the sa fe range as per Surgery team. The patient's renal function is improving. He seemed to be alert, sana ke and clinically looks well. Given the fact that he is getting FFP would go ahead and give him Lasi x 40 mg IV dose now. Continue to monitor blood pressure and volume status and patient advised to fol low up with Renal once his acute issues are resolved. Dr. Fernandez does do Clinic in [place] and c an follow up with them to see if there is any residual damage to the kidneys. Appreciate you consulting us to take care of your patient with you. Do not hesitate to call if you have any questions. /GINNA Voice ID: [id number] Report ID: [id number]
[2017-12-20] MEDS: ATORVASTATIN 10 MG TAB PO SCH (21:17)
[2017-12-21] MEDS: TRAMADOL HCL 50 MG TAB PO PRN ×3 (02:10→15:56)
[2017-12-21] MEDS: SODIUM CHLORIDE 0.9% 10ML INJ IV SCH ×3 (02:12→21:02)
[2017-12-21 06:07] LABS: Absolute Lymphocytes (CBC) 1.2 K/uL (0.7-4.9); Absolute Monocytes 1.1 K/uL (0.1-1.3); Absolute Neutrophil 13.8 K/uL (1.8-8.0); Basophils % 1.2 % (0-1.3); Eosinophils % 2.1 % (0-4.4); Hematocrit 25.5 % (39.6-49.0); Lymphocytes % 7.1 % (15.3-44.8); MCH 30.8 pg (27.0-35.0); MCV 94.1 fL (80-100); MPV 9.7 fL (7.6-11.3); Monocytes % 6.9 % (3.3-12.3)
[2017-12-21 06:13] LABS: Protime INR 2.13
[2017-12-21] MEDS ORDERED: VITAMIN K (ADULT) 10 MG/ML SQ ONE (07:00)
[2017-12-21] MEDS: INSULIN -REGULAR HUMAN 50 UNIT/0.5 ML ML SQ SCH ×4 (07:30→21:00)
[2017-12-21] MEDS: PIPER/TAZO/NS 3.375gm 3.375 GM/100 ML BAG IVPB SCH ×2 (09:40→21:02)
[2017-12-21] MEDS: CARVEDILOL 3.125 MG TAB PO SCH ×2 (09:41→21:00)
[2017-12-21] MEDS: VITAMIN D 5,000 UNIT CAP PO SCH (09:41)
[2017-12-21] MEDS: SODIUM CHLORIDE 1 GM TAB PO SCH ×3 (09:41→17:44)
[2017-12-21] MEDS: CALCITROL 0.25 MCG CAP PO SCH (09:41)
[2017-12-21] MEDS: LACTOBACILLUS/ACIDOPHILUS TAB PO SCH ×2 (09:41→21:00)
[2017-12-21] MEDS ORDERED: D50W 25 GM/50 ML SYRINGE IV PRN (10:16)
[2017-12-21] MEDS ORDERED: GLUCAGON 1 MG/VIAL IM PRN (10:16)
[2017-12-21] MEDS: VANCOMYCIN 2 GM in NA CHLORIDE 0.9% 500 ML IVPB SCH (11:24)
[2017-12-21] MEDS ORDERED: NA CHLORIDE 0.9% 500 ML ONE (16:41)
--- NOTE | 2017-12-21 17:53 | PN ---
Date of Progress Note: 12/21/2017 Subjective: The patient seen and examined. Chart reviewed and case discussed with RN. The patient unfortunately not able to go for surgery due to INR being greater than 2. Will be scheduled for procedure in a.m., getting more FFP. The patient still reports multiple episodes of diarrhea. Physical Examination: Vital Signs: Temperature 96.2, heart rate 103, blood pressure 115/64, respirations 16, O2 100% on 2 L via nasal cannula. General: Awake, alert, oriented x3. Ill-appearing elderly male, obese, BUN 31. CV: S1, S2, irregularly irregular. Peripheral pulses present. Respiratory: Moving air well bilaterally. No wheezing. Abdomen: Abdomen is soft, nontender, nondistended. Positive bowel sounds. Extremities: No clubbing, cyanosis, or edema. Skin: Left foot, first digit, dry gangrenous ulcer. Right foot, plantar aspect , first metatarsal, also has a dry ulcer. Neuro: Decreased sensation bilateral lower extremities. Laboratory Data: Sodium 133, potassium 4, chloride 93, CO2 27, BUN 87, creatinine 2.16, glucose 103. Calcium 8.4. WBC 16.7, H and H 8.3 and 25.5, platelets 285, neutrophils 82.7%. Blood cultures final negative. Assessment And Plan: A 67-year-old male with: 1. Left first toe diabetic wound with osteomyelitis, scheduled for transmetatarsal amputation once INR is less than 2. He will receive more FFP. Blood cultures negative final. 2. Chronic atrial fibrillation, on amiodarone. Anticoagulation held due to surgery. 3. Coagulopathy. INR has been around 4, now trending down after multiple units of FFP and vitamin K. INR still low 2 at this time. 4. Normocytic normochromic anemia, status post 2 units PRBC. We will continue to monitor H and H. 5. Peripheral vascular disease, severe, without high-grade stenosis or occlusion. We will resume Plavix after surgery. 6. Chronic combined systolic diastolic heart failure, compensated. 7. Diabetes mellitus type 2 with long-term use of insulin with skin complications and foot ulcer. Continue sliding scale insulin. 8. Sepsis secondary to diabetic foot ulcer, osteomyelitis. White count trending down. No further bandemia or fevers. Cultures are negative. We will continue broad-spectrum IV antibiotics until surgery and when the infected tissue is removed, we will follow up with cultures obtained with surgical specimen. 9. Diarrhea, rule out Clostridium difficile. Continue probiotics. 10. Osteomyelitis of the first metatarsal of the left foot. 11. Hyponatremia, improved. Continue fluid restriction and we will monitor. 12. Acute on chronic kidney injury. Creatinine has stabilized around 2 secondary to acute tubular necrosis. We will continue to monitor. Nephrology on board. 13. Gastrointestinal and deep venous thrombosis prophylaxis with PPI and SCDs. /GINNA Voice ID: [id number] Report ID: [id number] MTDD
[2017-12-21] MEDS: ATORVASTATIN 10 MG TAB PO SCH (21:00)
[2017-12-21 22:17] LABS: Protime INR 2.11
[2017-12-21] MEDS ORDERED: VITAMIN K (ADULT) 10 MG/ML SQ SCH (23:45)
[2017-12-22] MEDS ORDERED: NA CHLORIDE 0.9% 100 ML ONE (02:32)
[2017-12-22] MEDS: TRAMADOL HCL 50 MG TAB PO PRN ×2 (02:51→20:22)
[2017-12-22 06:30] LABS: Protime INR 2.06
[2017-12-22] MEDS: INSULIN -REGULAR HUMAN 50 UNIT/0.5 ML ML SQ SCH ×4 (07:30→20:25)
[2017-12-22] MEDS: SODIUM CHLORIDE 1 GM TAB PO SCH ×3 (08:00→17:04)
[2017-12-22] MEDS: LACTOBACILLUS/ACIDOPHILUS TAB PO SCH ×2 (09:00→20:22)
[2017-12-22] MEDS: CALCITROL 0.25 MCG CAP PO SCH (09:00)
[2017-12-22] MEDS: VITAMIN D 5,000 UNIT CAP PO SCH (09:00)
[2017-12-22] MEDS: SODIUM CHLORIDE 0.9% 10ML INJ IV SCH ×2 (09:00→20:42)
[2017-12-22] MEDS: CARVEDILOL 3.125 MG TAB PO SCH ×2 (10:02→20:22)
[2017-12-22] MEDS: PIPER/TAZO/NS 3.375gm 3.375 GM/100 ML BAG IVPB SCH ×2 (10:02→20:24)
[2017-12-22] MEDS ORDERED: COLLAGENASE 30 GM OINTMENT TOP ONE (10:14)
[2017-12-22] MEDS ORDERED: PROPOFOL 200 MG/20 ML VIAL IV ONE (10:31)
[2017-12-22] MEDS ORDERED: FENTANYL CITR 100 MCG/2 ML ONE (10:32)
[2017-12-22] MEDS ORDERED: MIDAZOLAM HCL 2 MG/2 ML INJ ONE (10:32)
[2017-12-22] MEDS ORDERED: ONDANSETRON 4 MG/2 ML VIAL ONE (10:32)
[2017-12-22] MEDS ORDERED: LIDOCAINE 2% MPF 5 ML VIAL ONE (10:32)
[2017-12-22] MEDS ORDERED: NA CHLORIDE 0.9% 1,000 ML ONE (10:36)
[2017-12-22] MEDS ORDERED: NA CHLORIDE 0.9% 500 ML ONE (10:48)
--- NOTE | 2017-12-22 11:22 | P.OP ---
Preoperative diagnosis: Gangrene and osteo left big toe with severe PVD Postoperative diagnosis: same Primary procedure: Left 1st toe T-M Amputation Anesthesia: gen Estimated blood loss: min Specimen: infected tissue and 1st toe Findings: as above Complications: None Transferred to: Recovery Room Condition: Good
[2017-12-22] MEDS ORDERED: ETOMIDATE 20 MG/10 ML VIAL IV ONE (11:35)
[2017-12-22 11:45] VITALS: O2SAT 100
--- NOTE | 2017-12-22 13:33 | PN ---
Date of Progress Note: 12/22/2017 Subjective: The patient is seen and examined, chart reviewed, and case discussed with RN and Dr. Saravanan feliciano. The patient is going for surgery this morning for transmetatarsal amputation. The patient state that, he has not had any further diarrhea. Review of Systems: Negative except as above. Medications: Reviewed. Physical Examination: Vital Signs: Temperature 97.6, heart rate 96, blood pressure 124/65, respirations 18, and O2 100% on 2 L via nasal cannula General: awake, alert, oriented, mild distress. Elderly male, somewhat ill-appearing, obese, BMI 31 . CV: S1, S2, irregularly irregular. No murmurs. Respiratory: Moving air well bilaterally. No wheezing. Abdomen: Soft, nontender, nondistended. Positive bowel sounds. Extremities: No clubbing, cyanosis, or edema. Neuro: decreased sensation to bilateral lower extremities. Skin: The patient has dry gangrene on left first digit and dry ulcer on the first metatarsal of the right foot, plantar aspect. Laboratory Data: Pending. Blood glucose 120. Blood cultures negative. Final wound cultures, skin zackery. Surgical wound culture is pending. Assessment And Plan: A 67-year-old male with; 1.Left first toe diabetic wound with osteomyelitis, going for transmetatarsal amputation today. Ryanne reciate Dr. Foster's input. 2.Chronic atrial fibrillation, on amiodarone. Anticoagulation held due to surgery. 3.Coagulopathy. The patient has received multiple units of FFP and vitamin K despite being off Xare lto. We will obtain hematology consultation. 4.Normocytic normochromic anemia, status post packed red blood cells transfusion. Monitor H and H. 5.Peripheral vascular disease, severe, without high-grade stenosis. The patient will need Plavix af ter surgery. Unable to take Pletal due to his congestive heart failure. 6.Chronic combined systolic and diastolic heart failure, compensated. 7.Diabetes mellitus type 2 with long-term use of insulin with skin complications and foot ulcer. We will continue sliding scale insulin. 8.Sepsis secondary to diabetic foot ulcer, osteomyelitis. White count improved. Afebrile. Continu e broad-spectrum IV antibiotics. We will follow up on surgical wound cultures. Blood cultures are n egative. 9.Diarrhea, improved. We will send out specimen to rule out Clostridium difficile. Continue probio tics. 10.Osteomyelitis of the first metatarsal head, left foot. The patient will need long-term IV antibi otics at [facility] for 6 weeks minimum. 11.Hyponatremia, improved. Continue fluid restriction. 12.Acute on chronic kidney injury. We will continue to monitor creatinine. 13.Gastrointestinal and deep venous thrombosis prophylaxis PPI, SCDs. /GINNA Voice ID: [id number] Report ID: [id number]
--- NOTE | 2017-12-22 13:42 | OP ---
Date of Procedure: 12/22/2017 Surgeon: Gulshan Foster MD Preoperative Diagnoses: Gangrene, osteomyelitis, cellulitis, and severe peripheral vascular disease, left first toe. Postoperative Diagnoses: Gangrene, osteomyelitis, cellulitis, and severe peripheral vascular disease , left first toe. Procedure Performed: Left first toe transmetatarsal amputation. Estimated Blood Loss: Minimal. Specimen: Infected tissue and toe. Findings: As above. Anesthesia: General. Complications: None. Disposition: The patient tolerated the procedure in stable condition and was taken to Recovery in go od general condition. Procedure In Detail: The patient was brought to the OR and placed in supine position. General anest hesia was begun. The patient was prepped and draped in his usual sterile fashion and then Marcaine 0 .5% was infiltrated locally. Then sharp dissection proceeded around the mid first metatarsal bone, e lipse of skin around the toe made, subcu tissue divided, entire infected tissue excised. The toe was transected with bone cutters and infected tissue sent for cultures. Wound irrigated. Bleeding cont rolled with electrocautery and collagenase wet-to-dry, normal saline, dressing change applied. The patient tolerated the procedure in stable condition and taken to Recovery in good general condition. JAQUAN/GINNA Voice ID: [id number] Report ID: [id number]
[2017-12-22] MEDS ORDERED: FUROSEMIDE 40 MG/4 ML VIAL IV ONE (16:36)
--- NOTE | 2017-12-22 16:41 | P.PN ---
Date of Service: 12/22/17 Vital Signs Temp Pulse Resp BP Pulse Ox 97.2 F 99 H 18 110/84 100 12/22/17 12:52 12/22/17 12:52 12/22/17 12:52 12/22/17 12:52 12/22/17 08:00 Medications Acetaminophen (Tylenol -Extra Strength) 500 mg PO Q4HP PRN PRN Reason: [id number] Stop: 01/13/18 15:30 Atorvastatin Calcium (Lipitor) 10 mg PO BEDTIME BECKY Stop: 01/14/18 21:01 Last Admin: 12/21/17 21:00 Dose: 10 mg Calcitriol (Rocaltrol) 0.5 mcg PO DAILY BECKY Stop: 01/15/18 09:01 Last Admin: 12/22/17 09:00 Dose: Not Given Carvedilol (Coreg) 3.125 mg PO BID BECKY Stop: 01/14/18 09:01 Last Admin: 12/22/17 10:02 Dose: 3.125 mg Cholecalciferol (Vitamin D 5,000 Iu Cap) 5,000 unit PO DAILY BECKY Stop: 01/15/18 09:01 Last Admin: 12/22/17 09:00 Dose: Not Given Dextrose (Dextrose 50% Syringe) 12.5 gm IV PRN PRN PRN Reason: HYPOGLYCEMIA PROTOCOL Stop: 01/20/18 10:17 Glucagon (Glucagen) 1 mg IM 1X PRN PRN Reason: HYPOGLYCEMIA Stop: 01/20/18 10:17 Piperacillin Sod/Tazobactam Sod (Zosyn 3.375 Gm/100 Ml Ns Ivpb) 3.375 gm in 100 mls @ 100 mls/hr IVPB Q12HR BECKY Stop: 01/13/18 21:01 Last Admin: 12/22/17 10:02 Dose: 100 mls Vancomycin HCl 2 gm/ Sodium (Chloride) 500 mls @ 250 mls/hr IVPB Q48H BECKY PRN Reason: Protocol Stop: 01/20/18 10:01 Last Admin: 12/21/17 11:24 Dose: 500 mls Insulin Human Regular (Novolin -R) 0 unit SQ ACHS BECKY PRN Reason: Protocol Stop: 01/13/18 16:31 Last Admin: 12/22/17 11:30 Dose: Not Given Lactobacillus Acidoph/Bulgaricus (Lactinex) 1 tab PO BID [facility] Stop: 01/19/18 21:01 Last Admin: 12/22/17 09:00 Dose: Not Given Morphine Sulfate (Morphine Sulfate) 2 mg IV Q4H PRN PRN Reason: PAIN MODERATE TO SEVERE Stop: 01/17/18 05:36 Last Admin: 12/18/17 15:47 Dose: 2 mg Ondansetron HCl (Zofran) 4 mg IV Q6HP PRN PRN Reason: NAUSEA / VOMITING Stop: 01/13/18 15:30 Last Admin: 12/17/17 16:27 Dose: 4 mg Phytonadione (Vitamin K 10 Mg/Ml) 10 mg SQ 1X [facility] Stop: 01/20/18 23:46 Last Admin: 12/22/17 00:04 Dose: 10 mg Sodium Chloride (Normal Saline Flush) 10 ml IV BID [facility] Stop: 01/13/18 21:01 Last Admin: 12/22/17 09:00 Dose: Not Given Sodium Chloride (Nacl Tabs) 1 gm PO TIDWM [facility] Stop: 01/15/18 12:01 Last Admin: 12/22/17 12:00 Dose: Not Given Sodium Chloride (Sodium Chloride 10 Ml Inj) 10 ml IV PRN PRN PRN Reason: PICC LINE FLUSH Stop: 01/17/18 04:01 Sodium Chloride (Sodium Chloride 10 Ml Inj) 20 ml IV PRN PRN PRN Reason: PICC LINE FLUSH Stop: 01/17/18 04:01 Last Admin: 12/18/17 21:13 Dose: 20 ml Sodium Chloride (Sodium Chloride 10 Ml Inj) 10 ml IV BID [facility] Stop: 01/17/18 09:01 Last Admin: 12/22/17 09:00 Dose: Not Given Tramadol HCl (Ultram) 50 mg PO Q6H PRN PRN Reason: PAIN Stop: 01/13/18 19:32 Last Admin: 12/22/17 02:51 Dose: 50 mg Microbiology Results 12/14/17 13:35 Blood - Other Aerobic Blood Culture - Final No growth in 5 days. 12/14/17 13:35 Blood - Other Anaerobic Blood Culture - Final No growth in 5 days. 12/14/17 13:10 Blood - Other Aerobic Blood Culture - Final No growth in 5 days. 12/14/17 13:10 Blood - Other Anaerobic Blood Culture - Final No growth in 5 days. 12/14/17 13:15 Wound - Left Toe Gram Stain - Final 12/14/17 13:15 Wound - Left Toe Culture & Sensitivity - Final Assessment/ Plan: Nephrology. Still feels swollen. CPS stable without CP or SOB. No acute events overnight. Vitals, medications, blood work and imaging reviewed in the chart. General: Oriented x3, Cooperative HEENT: Atraumatic Neck: Supple Respiratory: Clear to auscultation bilaterally, Normal air movement Cardiovascular: Regular rate/rhythm, No rubs, Edema Gastrointestinal: Soft and benign, Non-distended Musculoskeletal: No clubbing, No contractures Integumentary: No rashes, Skin breakdown, Diabetic ulcer Neurological: Normal speech Laboratory Data (last 24 hrs) 12/14/17 13:10: B-Natriuretic Peptide 1788 H 12/14/17 13:10: PT 28.1 H, INR 2.36, APTT 33.2 12/14/17 13:10: WBC 20.0 H, Hgb 9.3 L, Hct 28.9 L, Plt Count 302 12/14/17 13:10: Sodium 134 L, Potassium 3.4 L, BUN 52 H, Creatinine 2.18 H, Glucose 126 H, Magnesium 2.5, Total Bilirubin 0.9, AST 20, ALT 13, Alkaline Phosphatase 85 Imagings Data: EXAM DESCRIPTION: RAD - Chest Single View - 12/14/2017 1:35 pm CLINICAL HISTORY: Shortness of breath COMPARISON: May 2017 TECHNIQUE: AP portable chest image was obtained 1318 hours . FINDINGS: No focal mass or consolidation. Lung markings are prominent but not clearly different. Cardiac silhouette is enlarged, similar to fractionally increased over the prior study. No vascular engorgement. No measurable pleural effusion and no pneumothorax. No gross bony abnormality seen. No acute aortic findings suspected. IMPRESSION: No focal lung parenchymal process seen. Cardiomegaly without additional findings of acute failure or volume overload. Conclusions/Impression: A/ JOHN likely ATN in the setting of NSAIDs. CKD III. HTN with CKD. DM II with CKD. Diastolic CHF, chronic. Anemia in chronic illness. Iron deficiency, severe. Hyponatemia. Hypokalemia. Hypocalcemia. Moderate malnutrition. PAD with LE ulcers. P/ Continue current POC and Medications. Give a dose of IV Lasix. Give a dose of IV iron. Agree with abx/ Recommend renal dosing. Monitor vancomycin levels. Encourage nutrition. No NSAIDs. AM labs. Daily weight.
[2017-12-22 17:29] LABS: Protime INR 2.04
--- NOTE | 2017-12-22 19:03 | PN ---
Subjective: The patient lying in bed. Had surgical amputation done of his left foot big toe by surg ical team. No new acute events. Chart reviewed. Objective: Vital Signs: Temperature 97, pulse 99, respiration 18, blood pressure 110/84. Lungs: Basal crackles. Heart: S1, S2. Regular. Abdomen: Soft, nontender. Bowel sounds positive. Extremity: No edema. Left foot in surgical dressing. Laboratory Data: Shows WBC 16.7, hemoglobin 8.3, platelets are 285. Chemistry shows sodium 133, pot assium 4, chloride 93, bicarb 27, BUN 87, creatinine 2.16, glucose is 103. Medication: Include Zosyn and vancomycin. Assessment And Plan: Bilateral foot gangrenous changes, peripheral arterial disease with ischemic ch anges. Continue antibiotic. Need revascularization. Continue IV antibiotic and wound care for 6 we eks. We will follow the patient as needed. NF/MODL Voice ID: [id number] Report ID: [id number]
[2017-12-22] MEDS: ATORVASTATIN 10 MG TAB PO SCH (20:22)
[2017-12-23 06:05] LABS: Absolute Lymphocytes (CBC) 1.1 K/uL (0.7-4.9); Absolute Monocytes 0.9 K/uL (0.1-1.3); Basophils % 0.8 % (0-1.3); Hematocrit 25.8 % (39.6-49.0); Lymphocytes % 7.5 % (15.3-44.8); MCH 30.6 pg (27.0-35.0); MCV 94.8 fL (80-100); Monocytes % 6.4 % (3.3-12.3); RBC Red Blood Cell Count 2.72 M/uL (4.33-5.43)
[2017-12-23 06:30] LABS: Bilirubin Total 5.8 mg/dL (0.3-1.2); Potassium 4.4 mEq/L (3.6-5.0); Protein, Total 6.8 g/dL (6.0-8.3); Uric Acid 13.6 mg/dL (4.8-8.7)
[2017-12-23] MEDS: INSULIN -REGULAR HUMAN 50 UNIT/0.5 ML ML SQ SCH ×2 (07:30→11:30)
[2017-12-23] MEDS: TRAMADOL HCL 50 MG TAB PO PRN (07:31)
[2017-12-23] MEDS: LACTOBACILLUS/ACIDOPHILUS TAB PO SCH (09:03)
[2017-12-23] MEDS: PIPER/TAZO/NS 3.375gm 3.375 GM/100 ML BAG IVPB SCH (09:03)
[2017-12-23] MEDS: VITAMIN D 5,000 UNIT CAP PO SCH (09:04)
[2017-12-23] MEDS: CARVEDILOL 3.125 MG TAB PO SCH (09:04)
[2017-12-23] MEDS: SODIUM CHLORIDE 1 GM TAB PO SCH ×2 (09:04→13:22)
[2017-12-23] MEDS: CALCITROL 0.25 MCG CAP PO SCH (09:04)
[2017-12-23] MEDS: SODIUM CHLORIDE 0.9% 10ML INJ IV SCH (09:04)
[2017-12-23] MEDS ORDERED: MORPHINE 4 MG/ML SYR IV PRN (09:29)
--- NOTE | 2017-12-23 10:23 | RAD REPORT ---
EXAM DESCRIPTION: US - Abdomen Exam Complete - 12/23/2017 8:04 am CLINICAL HISTORY: Abdominal pain/abnormal liver function test enzymes. COMPARISON: 2015 ultrasound. FINDINGS: The liver has an increased echotexture. The gallbladder is distended. A gallstone is not seen. The biliary tree is normal in caliber. The right kidney measures 11 cm with a normal echotexture. The left kidney measures 11 cm with a normal echotexture. The spleen measures 11 cm. The pancreas is not well visualized secondary to overlying bowel gas without visualization of a gross abnormality. A small amount of ascites is seen. IMPRESSION: 1. Increased hepatic echotexture probably representing fatty infiltration. 2. Small amount of ascites. 3. Gallbladder distention without visualization of a gallstone.
[2017-12-23] MEDS: VANCOMYCIN 2 GM in NA CHLORIDE 0.9% 500 ML IVPB SCH (11:13)
[2017-12-23 14:54] VITALS: BP 104/68; TEMP 96.9
[2017-12-23] MEDS ORDERED: SOD FERRIC GLUC COMPLX/SUCROSE 125 MG in NA CHLORIDE 0.9% 100 ML IV ONE (17:00)
--- NOTE | 2017-12-23 20:59 | P.PN ---
Date of Service: 12/23/17 Vital Signs Temp Pulse Resp BP Pulse Ox 96.9 F 100 H 16 104/68 92 12/23/17 14:53 12/23/17 14:53 12/23/17 14:53 12/23/17 14:53 12/23/17 14:53 Microbiology Results 12/14/17 13:35 Blood - Other Aerobic Blood Culture - Final No growth in 5 days. 12/14/17 13:35 Blood - Other Anaerobic Blood Culture - Final No growth in 5 days. 12/14/17 13:10 Blood - Other Aerobic Blood Culture - Final No growth in 5 days. 12/14/17 13:10 Blood - Other Anaerobic Blood Culture - Final No growth in 5 days. 12/14/17 13:15 Wound - Left Toe Gram Stain - Final 12/14/17 13:15 Wound - Left Toe Culture & Sensitivity - Final Assessment/ Plan: Nephrology. Doing well. CPS stable without CP or SOB. No acute events overnight. Vitals, medications, blood work and imaging reviewed in the chart. General: Oriented x3, Cooperative HEENT: Atraumatic Neck: Supple Respiratory: Clear to auscultation bilaterally, Normal air movement Cardiovascular: Regular rate/rhythm, No rubs, Edema Gastrointestinal: Soft and benign, Non-distended Musculoskeletal: No clubbing, No contractures Integumentary: No rashes, Skin breakdown, Diabetic ulcer Neurological: Normal speech Laboratory Data (last 24 hrs) 12/14/17 13:10: B-Natriuretic Peptide 1788 H 12/14/17 13:10: PT 28.1 H, INR 2.36, APTT 33.2 12/14/17 13:10: WBC 20.0 H, Hgb 9.3 L, Hct 28.9 L, Plt Count 302 12/14/17 13:10: Sodium 134 L, Potassium 3.4 L, BUN 52 H, Creatinine 2.18 H, Glucose 126 H, Magnesium 2.5, Total Bilirubin 0.9, AST 20, ALT 13, Alkaline Phosphatase 85 Imagings Data: EXAM DESCRIPTION: RAD - Chest Single View - 12/14/2017 1:35 pm CLINICAL HISTORY: Shortness of breath COMPARISON: May 2017 TECHNIQUE: AP portable chest image was obtained 1318 hours . FINDINGS: No focal mass or consolidation. Lung markings are prominent but not clearly different. Cardiac silhouette is enlarged, similar to fractionally increased over the prior study. No vascular engorgement. No measurable pleural effusion and no pneumothorax. No gross bony abnormality seen. No acute aortic findings suspected. IMPRESSION: No focal lung parenchymal process seen. Cardiomegaly without additional findings of acute failure or volume overload. Conclusions/Impression: A/ JOHN likely ATN in the setting of NSAIDs. CKD III. HTN with CKD. DM II with CKD. Diastolic CHF, chronic. Anemia in chronic illness. Iron deficiency, severe. Hyponatemia. Hypokalemia. Hypocalcemia. Moderate malnutrition. PAD with LE ulcers. Acute hepatitis. P/ Continue current POC and Medications. Agree with hepatitis evaluation. Check echocardiogram. Hold Lasix. Recheck UA. Agree with abx/ Renal dosing. Monitor vancomycin levels. Encourage nutrition. No NSAIDs. AM labs. Daily weight. Case discussed with Dr. Mckinnon. Plan for discharge to [facility].
--- NOTE | 2017-12-24 05:13 | DS ---
Date of Discharge: 12/23/2017 Consultants: Gulshan Foster MD, with Surgery; Williams Guidry MD, Infectious Disease; Melchor Felix DO, Nephrology; Naresh Dent MD, Cardiology; Alexandra Lopez MD, Hematology. Procedures: On 12/22/2017, the patient had a left first toe transmetatarsal amputation. Admitting Diagnoses: 1.Left great toe infection, diabetic foot wound. 2.Atrial fibrillation, chronic. 3.Congestive heart failure, combined systolic and diastolic. 4.Diabetes mellitus type 2 with long-term use of insulin. 5.Sepsis. Discharge Diagnoses: 1.Sepsis secondary to diabetic foot wound. 2.Left first toe diabetic foot wound with osteomyelitis, status post transmetatarsal amputation and great toe amputation. 3.Chronic atrial fibrillation, on Xarelto. 4.Coagulopathy. 5.Normocytic normochromic anemia, status post blood transfusion. 6.Elevated liver enzymes secondary to sepsis. 7.Peripheral vascular disease, severe, without high-grade stenosis. 8.Chronic combined systolic and diastolic heart failure, compensated. 9.Diabetes mellitus type 2 with long-term use of insulin with skin complications, foot ulcer. 10.Diarrhea, resolved. 11.Osteomyelitis of the first metatarsal head, left foot. 12.Hyponatremia, improved. 13.Acute on chronic kidney injury, stable. Hospital Course: The patient is a 67-year-old male who was admitted to the hospital for infection of his left first toe. The patient has a complicated history of heart failure; atrial fibrillation, on Xarelto; diabetes; hypertension; hyperlipidemia; nicotine dependence. The patient was started on IV antibiotics. Wound culture and blood cultures were obtained, which remained negative. Dr. Foster wi Surgery was consulted. The plan was for amputation. His Xarelto was held. However, the patient did develop coagulopathy with INR as high as 4.7. His INR was reversed. He was given vitamin K and multiple units of FFP. The patient was then able to have his surgery completed. He was also seen by Nephrology for [id number] kidney injury. The patient did overuse NSAIDs and had possible acut e tubular necrosis. His creatinine stabilized. ID was consulted for antibiotic recommendations. e patient was unable to have MRI done, and therefore, a bone scan was done, which did show osteomyeli tis of the first metatarsal head. This has subsequently been surgically removed. The patient also h ad a Doppler done due to his poor pulses and was found to have extensive lower extremity peripheral a rterial disease but no focal high-grade stenosis or occlusion. Dr. Dent and Dr. Dong were consu lted for possible revascularization and did not recommend any at this time. Doppler ultrasound was a lso done to rule out DVT, which was negative. The patient will need Vascular Surgery followup. The patient will be placed on Plavix. He is unable to tolerate Pletal due to his CHF. His CHF remained stable. He did have some sepsis and developed some liver dysfunction secondary to that. Hepatitis p oskar was obtained. Ultrasound of the abdomen was also done, which showed increased hepatic echotextu re, probably representing fatty infiltration, small amount of ascites, gallbladder distention without visualization of a gallstone. The patient had PICC line placed and was then referred to [facility] for long-term IV antibiotics for 6 weeks. The patient was then discharged in a stable condition. Activity: Fall precautions. Medications: As per medication reconciliation list. Finish up vancomycin and Zosyn for a total of 6 weeks. Due to elevated creatinine and abnormal kidney function, will need to be monitored very closely with weekly CBC, CMP, ESR, and CRP and to adjust antibiotics as needed to prevent any further acute kidney injury. Followup: Follow up with primary care physician in one week. Follow up with surgeon, Dr. Foster, in 2 weeks. Follow up with ID, Dr. Guidry, in 1 week. Follow up with hand cloth cutter, Dr. Felix, in 2 w eeks. Return to ER for worsening condition. Diet: Diabetic, fluid-restricted diet. Time Spent: Total time spent discharging the patient was 41 minutes. Discharge Physical Examination: General: Awake, alert, oriented x3, in no acute distress. CV: S1, S2. No murmurs. Irregularly irregular. Respiratory: Moving air well bilaterally. Abdomen: Soft, nontender, nondistended. Positive bowel sounds. Extremities: No clubbing, cyanosis, or edema. Musculoskeletal: Left first toe metatarsal amputation bandage. Some blood oozing in the dressing. Neurologic: Nonfocal. SA/MODL Voice ID: [id number] Report ID: [id number]
--- NOTE | 2017-12-24 08:58 | ECHO ---
HEIGHT: 6 ft 1 in WEIGHT: 237 lb 9.6 oz DATE OF STUDY: 12/23/[address]: Melchor Felix DO 2-DIMENSIONAL: YES M.MODE: YES DOPPLER: YES COLOR FLOW: YES TDS: NO PORTABLE: NO DEFINITY: NO BUBBLE STUDY: NO DIAGNOSIS: CONGESTIVE HEART FAILURE CARDIAC HISTORY: CATHERIZATION: YES SURGERY: NO PROSTHETIC VALVE: NO PACEMAKER: YES MEASUREMENTS (cm) DIASTOLIC (NORMALS) SYSTOLIC (NORMALS) IVSd 1.2 (0.6-1.2) LA Diam 5.4 (1.9-4.0) LVEF 9% LVIDd 5.7 (3.5-5.7) LVIDs 5.5 (2.0-3.5) %FS 4% LVPWd 1.3 (0.6-1.2) Ao Diam 3.0 (2.0-3.7) 2 DIMENSIONAL ASSESSMENT: RIGHT ATRIUM: DILATED LEFT ATRIUM: DILATED RIGHT VENTRICLE: DILATED LEFT VENTRICLE: DILATED TRICUSPID VALVE: NORMAL MITRAL VALVE: NORMAL PULMONIC VALVE: NORMAL AORTIC VALVE: NORMAL PERICARDIAL EFFUSION: NONE AORTIC ROOT: NORMAL LEFT VENTRICULAR WALL MOTION: SEVERE GLOBAL HYPOKINESIS. DOPPLER/COLOR FLOW: MILD MITRAL, TRICUSPID, AORTIC AND PULMONIC REGURGITATION. COMMENTS: MILD MITRAL, TRICUSPID, AORTIC AND PULMONIC REGURGITATION. AUTOMATIC INTERBAL CARDIAC DEFIBRILLATOR PACEMAKER IN RIGHT VENTRICLE. SEVERE GLOBAL HYPOKINESIS. FOUR CHAMBER DILATATION. TECHNOLOGIST: Ethan CHANDRA
[2017-12-25 03:49] LABS: HBsAG Nonreactive (Nonreactive); Hepatitis A IgM Antibody Nonreactive
== END 2017-12-23 14:42 | DRG 853 ==
LOC: ER 11:23 → ERHOLD 15:33 → 2ND 16:51
PROVIDERS: ADMIT Family Medicine; ATTEND Family Medicine
PROC: 30233K1 Transfusion of Nonautologous Frozen Plasma into Peripheral Vein, Percutaneous Approach (ICD-10-PCS; 2017-12-18)
PROC: 30233N1 Transfusion of Nonautologous Red Blood Cells into Peripheral Vein, Percutaneous Approach (ICD-10-PCS; 2017-12-18)
PROC: 0Y6Q0Z0 Detachment at Left 1st Toe, Complete, Open Approach (ICD-10-PCS; principal; 2017-12-22 11:15)
DX: A41.9 Sepsis, unspecified organism (principal); N17.0 Acute kidney failure with tubular necrosis; I50.42 Chronic combined systolic (congestive) and diastolic (congestive) heart failure; E87.1 Hypo-osmolality and hyponatremia; E44.0 Moderate protein-calorie malnutrition; E11.52 Type 2 diabetes mellitus with diabetic peripheral angiopathy with gangrene; I96 Gangrene, not elsewhere classified; E11.621 Type 2 diabetes mellitus with foot ulcer; L97.509 Non-pressure chronic ulcer of other part of unspecified foot with unspecified severity; I48.2 Chronic atrial fibrillation; N14.1 Nephropathy induced by other drugs, medicaments and biological substances; T39.395A Adverse effect of other nonsteroidal anti-inflammatory drugs [NSAID], initial encounter; N18.3 Chronic kidney disease, stage 3 (moderate); E11.22 Type 2 diabetes mellitus with diabetic chronic kidney disease; E87.6 Hypokalemia; I25.2 Old myocardial infarction; Z68.31 Body mass index [BMI] 31.0-31.9, adult
CPT/HCPCS: 36415; 71045; 76700; 78315; 80048; 80053; 80074; 80076; 80202; 81001; 81003; 82248; 82607; 82746; 82962; 83540; 83605; 83735; 83880; 83930; 84100; 84132; 84466; 84550; 85014; 85018; 85025; 85610; 85730; 86140; 86850; 86900; 86901; 87040; 87070; 87075; 87205; 88305; 88311; 93005; 93306; 93926; 93971; 96365; 96367; 96375; 99285; A9503; J2250; J2270; J2405; J2543; J2916; J3010; J3370; J3430; J3590; J7030; P9016; P9059